=== PATIENT | female | born 1935 | race Caucasian/White ===

== ENCOUNTER → 2020-09-28 | Outpatient (CLI) | payer MEDICARE ==
--- NOTE | 2020-09-28 13:42 | MR ---
MR brain without contrast HISTORY: R 42, headaches dizziness and loss of balance Multiplanar multisequence imaging obtained through the brain, correlation to CT brain 09/05/2020 Scattered and confluent periventricular, subcortical, pericallosal hyperintensities present on invers ion recovery T2-weighted sequences, largest focus in the right frontal lobe on axial image #17 measur es 12 mm. There are greater than 50 lesions. There is no hemorrhage or hydrocephalus. Cortical atroph y is likely age-related. The cerebellopontine angles, corpus callosum, pituitary, cervical medullary junction are unremarkable. Orbits show symmetric appearance. Visualized paranasal sinuses and mastoid air cells are well aerated. There are normal vascular flow voids. IMPRESSION: Age-related atrophy and chronic small vessel ischemic change.
== END | disposition home or self-care (01) ==
LOC: RADMRIMAIN 08:56
PROVIDERS: ATTEND Nurse Practitioner Family
DX: I67.82 Cerebral ischemia (principal); G31.9 Degenerative disease of nervous system, unspecified
CPT/HCPCS: 70551

== ENCOUNTER 2020-09-29 14:35 | Inpatient (IN) | payer MEDICARE ==
[2020-09-29] MEDS ORDERED: SODIUM CHLORIDE 0.9% 1,000 ML IV STA (15:24)
--- NOTE | 2020-09-29 15:51 | ED ---
Weakness HPI - General Chief complaint: Weakness Stated complaint: Sent from Source: patient Mode of arrival: ambulatory Limitations: no limitations - History of Present Illness Initial comments: Tayla is an 85yo F is brought to the ER today by her family for evaluation of weakness and decrease in functional status. Family reports that over the past few weeks the patient has begun progressively weak, she is no longer able to ambulate independently, cannot make up and down her stairs at home, cannot bathe herself. Previously patient was completely independent in driving. Patient reports she has no appetite she feels nauseated she is not eating but is trying to drink water. - Related Data Home Medications Medication Instructions Recorded Confirmed Aspirin EC [Ecotrin Low Dose] 81 mg PO DAILY 09/29/20 09/29/20 Atorvastatin [Lipitor] 40 mg PO HS 09/29/20 09/29/20 Cefuroxime [Ceftin] 250 mg PO Q12H 09/29/20 09/29/20 Cyanocobalamin [Vitamin B-12] 500 mcg PO DAILY 09/29/20 09/29/20 Ferrous Sulfate [Feosol] 325 mg PO DAILY 09/29/20 09/29/20 Insulin NPH Human Isophane 22 - 24 units SQ DAILY 09/29/20 09/29/20 [NovoLIN N] Lisinopril-Hctz 10-12.5 mg 1 tab PO DAILY 09/29/20 09/29/20 [Zestoretic 10-12.5] Meclizine [Antivert] 12.5 mg PO TID 09/29/20 09/29/20 Pantoprazole Sodium [Protonix] 40 mg PO BID 09/29/20 09/29/20 Scopolamine 1.5MG/72Hr Patch 1 patch TRANSDERM Q72H 09/29/20 09/29/20 [Transderm-Scop 1.5MG/72Hr Patch] hydrALAZINE HCL [Apresoline] 50 mg PO TID 09/29/20 09/29/20 Allergies Allergy/AdvReac Type Severity Reaction Status Date / Time tetracycline Allergy Anaphylaxis Verified 09/29/20 16:10 Review of Systems ROS Statement: Those systems with pertinent positive or pertinent negative responses have been documented in the HPI. ROS Other: All systems not noted in ROS Statement are negative. Past Medical History Past Medical History: Cancer, COPD, Diabetes Mellitus, Hypertension Additional Past Medical History / Comment(s): bladder ca History of Any Multi-Drug Resistant Organisms: None Reported Past Surgical History: No Surgical Hx Reported Past Psychological History: No Psychological Hx Reported Smoking Status: Former smoker Past Alcohol Use History: Occasional Past Drug Use History: Marijuana General Exam - General Exam Comments Initial Comments: Physical Exam GENERAL: Patient is well-developed and well-nourished. Dehydrated appearing elderly female HENT: Normocephalic, Atraumatic. EYES: PERRL, EOMI PULMONARY: Unlabored respirations. No audible rales rhonchi or wheezing was noted. CARDIOVASCULAR: RRR ABDOMEN: Soft and nontender with normal bowel sounds. SKIN: Dry : Deferred NEUROLOGIC: Patient is alert and oriented x3. Moving all extremities spontaneously Did not ambulate secondary to weakness No focal weakness MUSCULOSKELETAL: Normal extremities No injury PSYCHIATRIC: Normal psychiatric evaluation. Limitations: no limitations Course Vital Signs 09/29/20 09/29/20 09/29/20 14:36 15:45 16:00 Temperature 98 F Pulse Rate 73 76 Respiratory 18 18 18 Rate Blood Pressure 153/68 146/52 O2 Sat by Pulse 96 96 Oximetry 09/29/20 09/29/20 17:00 17:59 Temperature 98 F Pulse Rate 76 76 Respiratory 18 18 Rate Blood Pressure 169/64 169/64 O2 Sat by Pulse 96 96 Oximetry EKG Findings - EKG Comments: EKG Findings:: EKG was obtained due to complaint of weakness in an elderly patient, EKG obtained at 1506 rate 73 rhythm is sinus there is a normal axis, t here are normal intervals, NM 126, QRS 86, QTC is 414 there are no acute ST elevations or depressions no evidence of ischemia, infarction or arrhythmia. Medical Decision Making - Medical Decision Making Patient was seen and evaluated history is obtained from patient, family members at bedside and patient's primary care physician Patient with a rapid decline in her functional status, generalized weakness loss of appetite she appears dehydrated Patient had outpatient head CT and MRI with no acute findings Labs are obtained patient is dehydrated and hyponatremic, 1 L IV fluids and maintenance fluids were ordered Patient care was discussed with her primary care who is concerned the patient may have a paraneoplastic syndrome and requests computed tomography scan of the chest abdomen and pelvis however due to the patient's dehydration and decreased GFR we will rehydrate her and computed tomography scan can be done at a later time Patient was straight cathed was noted to have a urinary tract infection Rocephin was ordered as well as a culture - Lab Data Result diagrams: 09/29/20 15:41 09/29/20 15:41 Lab Results 09/29/20 09/29/20 09/29/20 Range/Units 15:41 15:41 15:41 WBC 5.9 (3.8-10.6) k/uL RBC 3.33 L (3.80-5.40) m/uL Hgb 9.7 L (11.4-16.0) gm/dL Hct 27.7 L (34.0-46.0) % MCV 83.0 (80.0-100.0) fL MCH 29.1 (25.0-35.0) pg MCHC 35.1 (31.0-37.0) g/dL RDW 12.0 (11.5-15.5) % Plt Count 297 (150-450) k/uL MPV 7.5 Neutrophils % 72 % Lymphocytes % 10 % Monocytes % 9 % Eosinophils % 6 % Basophils % 1 % Neutrophils # 4.3 (1.3-7.7) k/uL Lymphocytes # 0.6 L (1.0-4.8) k/uL Monocytes # 0.5 (0-1.0) k/uL Eosinophils # 0.4 (0-0.7) k/uL Basophils # 0.1 (0-0.2) k/uL Sodium 128 L (137-145) mmol/L Potassium 4.6 (3.5-5.1) mmol/L Chloride 94 L (98-107) mmol/L Carbon Dioxide 24 (22-30) mmol/L Anion Gap 10 mmol/L BUN 34 H (7-17) mg/dL Creatinine 1.32 H (0.52-1.04) mg/dL Est GFR (CKD-EPI)AfAm 43 (>60 ml/min/1.73 sqM) Est GFR (CKD-EPI)NonAf 37 (>60 ml/min/1.73 sqM) Glucose 229 H (74-99) mg/dL Plasma Lactic Acid Darrion 0.7 (0.7-2.0) mmol/L Calcium 9.8 (8.4-10.2) mg/dL Magnesium 1.5 L (1.6-2.3) mg/dL Total Bilirubin 0.1 L (0.2-1.3) mg/dL AST 20 (14-36) U/L ALT 19 (4-34) U/L Alkaline Phosphatase 79 (38-126) U/L Troponin I (0.000-0.034) ng/mL Total Protein 6.1 L (6.3-8.2) g/dL Albumin 3.5 (3.5-5.0) g/dL TSH 2.290 (0.465-4.680) mIU/L 09/29/20 Range/Units 15:41 WBC (3.8-10.6) k/uL RBC (3.80-5.40) m/uL Hgb (11.4-16.0) gm/dL Hct (34.0-46.0) % MCV (80.0-100.0) fL MCH (25.0-35.0) pg MCHC (31.0-37.0) g/dL RDW (11.5-15.5) % Plt Count (150-450) k/uL MPV Neutrophils % % Lymphocytes % % Monocytes % % Eosinophils % % Basophils % % Neutrophils # (1.3-7.7) k/uL Lymphocytes # (1.0-4.8) k/uL Monocytes # (0-1.0) k/uL Eosinophils # (0-0.7) k/uL Basophils # (0-0.2) k/uL Sodium (137-145) mmol/L Potassium (3.5-5.1) mmol/L Chloride (98-107) mmol/L Carbon Dioxide (22-30) mmol/L Anion Gap mmol/L BUN (7-17) mg/dL Creatinine (0.52-1.04) mg/dL Est GFR (CKD-EPI)AfAm (>60 ml/min/1.73 sqM) Est GFR (CKD-EPI)NonAf (>60 ml/min/1.73 sqM) Glucose (74-99) mg/dL Plasma Lactic Acid Darrion (0.7-2.0) mmol/L Calcium (8.4-10.2) mg/dL Magnesium (1.6-2.3) mg/dL Total Bilirubin (0.2-1.3) mg/dL AST (14-36) U/L ALT (4-34) U/L Alkaline Phosphatase (38-126) U/L Troponin I <0.012 (0.000-0.034) ng/mL Total Protein (6.3-8.2) g/dL Albumin (3.5-5.0) g/dL TSH (0.465-4.680) mIU/L Disposition Clinical Impression: Hyponatremia, Weakness, Hyperglycemia, Anemia, Debility Disposition: ADMITTED IP TO THIS [facility] Condition: Serious Is patient prescribed a controlled substance at d/c from ED?: No
[2020-09-29 15:56] LABS: Basophils # (A) 0.1 k/uL (0-0.2); Basophils % (A) 1 %; Eosinophils # (A) 0.4 k/uL (0-0.7); Eosinophils % (A) 6 %; HCT 27.7 % (34.0-46.0); HGB 9.7 gm/dL (11.4-16.0); Lymphocytes # (A) 0.6 k/uL (1.0-4.8); Lymphocytes % (A) 10 %; MCH 29.1 pg (25.0-35.0); MCHC 35.1 g/dL (31.0-37.0); Mean Platelet Volume 7.5; Monocytes # (A) 0.5 k/uL (0-1.0); Monocytes % (A) 9 %; Neutrophils # (A) 4.3 k/uL (1.3-7.7); Neutrophils % (A) 72 %; Platelet Count 297 k/uL (150-450); RBC 3.33 m/uL (3.80-5.40); WBC 5.9 k/uL (3.8-10.6)
[2020-09-29 16:05] LABS: Albumin 3.5 g/dL (3.5-5.0); Calcium 9.8 mg/dL (8.4-10.2); Magnesium 1.5 mg/dL (1.6-2.3); Potassium 4.6 mmol/L (3.5-5.1); Total Bilirubin 0.1 mg/dL (0.2-1.3); Total Protein 6.1 g/dL (6.3-8.2)
--- NOTE | 2020-09-29 16:24 | XR ---
EXAMINATION TYPE: XR chest 2V DATE OF EXAM: 09/29/2020 COMPARISON: NONE HISTORY: Shortness of breath TECHNIQUE: Frontal and lateral views of the chest are obtained. FINDINGS: Scattered senescent parenchymal changes noted. Hyperinflation compatible with COPD. No evidence for infiltrate. No evidence for atelectasis. Heart size is stable. Mediastinal structures are stable and grossly unremarkable. No evidence for hilar prominence. Degenerative changes dorsal spine. IMPRESSION: 1. No evidence for acute pulmonary disease.
[2020-09-29 16:25] LABS: Appearance,Urine Cloudy (Clear); Bacteria,Urine Many /hpf; Bilirubin,Urine Negative (Negative); Blood,Urine Negative (Negative); Color,Urine Light Yellow; Glucose,Urine (UA) Negative (Negative); Ketones,Urine Negative (Negative); Leukocyte Esterase,Urine Large (Negative); Mucus,Urine Rare /hpf; Nitrite,Urine Negative (Negative); Protein,Urine Negative (Negative); RBC,Urine 1 /hpf (0-5); Squamous Epithelial Cell,Urine <1 /hpf (0-4); Urobilinogen,Urine <2.0 mg/dL (<2.0); WBC,Urine >182 /hpf (0-5)
[2020-09-29] MEDS ORDERED: NALOXONE 0.4 MG/ML 1 ML VIAL IV PRN (16:30)
[2020-09-29 20:28] LABS: Glucose,Whole Blood 225 mg/dL (75-99)
[2020-09-29] MEDS: INSULIN ASPART (NovoLOG) 100 UNIT/ML VIAL SQ SCH (20:45)
[2020-09-29] MEDS: SODIUM CHLORIDE 0.9% 1,000 ML IV SCH (20:47)
[2020-09-29] MEDS ORDERED: SCOPOLAMINE 1.5MG/72HR PATCH TRANSDERM SCH (21:00)
[2020-09-29] MEDS: hydrALAZINE HCL 50 MG TAB PO SCH (21:35)
[2020-09-29] MEDS: MECLIZINE 12.5 MG TAB PO SCH (21:36)
[2020-09-30 02:01] LABS: Glucose,Whole Blood 131 mg/dL (75-99)
[2020-09-30 06:05] LABS: Glucose,Whole Blood 137 mg/dL (75-99)
[2020-09-30] MEDS: INSULIN ASPART (NovoLOG) 100 UNIT/ML VIAL SQ SCH ×4 (06:31→21:30)
[2020-09-30 07:22] LABS: HCT 24.6 % (34.0-46.0); HGB 8.8 gm/dL (11.4-16.0); MCH 29.6 pg (25.0-35.0); MCHC 35.7 g/dL (31.0-37.0); MCV 82.9 fL (80.0-100.0); Platelet Count 274 k/uL (150-450); RBC 2.97 m/uL (3.80-5.40); RDW 12.2 % (11.5-15.5); WBC 5.5 k/uL (3.8-10.6)
[2020-09-30] MEDS ORDERED: PANTOPRAZOLE 40 MG TABLET PO SCH (07:30)
[2020-09-30 07:45] LABS: Calcium 9.1 mg/dL (8.4-10.2); Magnesium 1.3 mg/dL (1.6-2.3); Potassium 4.1 mmol/L (3.5-5.1); Total Bilirubin 0.1 mg/dL (0.2-1.3); Total Protein 5.5 g/dL (6.3-8.2)
--- NOTE | 2020-09-30 08:20 | P.HPIM ---
History of Present Illness H&P Date: 09/29/20 Chief Complaint: Change mental status, debility, hyponatremia, electrolyte i mbalance, acute HISTORY OF PRESENT ILLNESS 85-year-old female in my office patient who has multiple medical problem known to have history of bladder cancer, atherosclerotic heart disease, history of diabetes, history of CVA, recurrent UTI, chronic smoking and peripheral vascular disease who was hospitalized recently at [facility] for TIA and found to have recurrent UTI with encephalopathy. Patient was treated in full seen back in the office continue to have significant symptom with abnormal balance gait along with severe vestibulopathy and dizziness. Found to have another UTI which was treated as well and patient was referred for outpatient MRI showed significant small vessel disease with multiple spot of abdomen radiation consistent with most likely TIA and small vessel disease no sign of large CVA was found. And no sign of any questionable of metastasis at the time. Patient has been declining very aggressively not been able to ambulate, walk, take care of herself, not been able to walk to the bathroom shower or fix her meals. 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 Chest x-ray came back negative, with her kidney function decided to delay going for CAT scan of the abdomen pelvis and the chest still patient is well-hydrated and patient will be admitted for recurrent UTI with possible neoplasm in the bladder also workup for neoplasm in the lung or in the soft tissue in the abdominal and pelvis area to be done still watch for any gastrointestinal bleed. Her blood sugar has been significantly elevated despite using her insulin which will be adjusted at this point. REVIEW OF SYSTEMS Constitutional: No fever, no chills, no night sweats. No weight change. No weakness, fatigue or lethargy. No daytime sleepiness. EENT: No headache. No blurred vision or double vision, no loss of vision. No loss of Hearing, no ringing in the ears, no dizziness. No nasal drainage or congestion. No epistaxis. No sore throat. Lungs: Shortness of breath with minimum exertion. Cardiovascular: PND orthopnea palpitations with slight fluctuation of the blood pressure no typical chest pain. Abdominal: Abdominal pain and slightly decreased appetite No nausea, vomiting. No diarrhea. No constipation. No bloody or tarry stools.. Genitourinary: Recurrent UTI 3 times despite treatment. Musculoskeletal: Positive myalgia and arthralgia without any rash this time no soft tissue infection Integumentary: No wounds, no lesions. No rash or pruritus. No unusual bruising. No change in hair or nails. Neurologic: Change mental status with abnormal balance and gait significant dizziness question left vestibulopathy with worsening memory Psychiatric: No depression. No anxiety. No mood swings. Endocrine: No abnormal blood sugars. No weight change. No excessive sweating or thirst. No cold intolerance. SOCIAL HISTORY Patient quit smoking 3 years ago used to be heavy smoker over one and half pack daily for 40 years, no alcohol abuse, she is and lives home alone and has been independent able to take care of herself drive herself make her own appointment fix her own food and go shopping on her own until the last 3 weeks and family start managing to take care of her and still worry about her fall and safety. FAMILY HISTORY 3 children with history of hypertension. Siblings with history of dementia, CAD and cancer. Her father from AAA rupture PHYSICAL EXAMINATION Gen: This is elderly does not look in any respiratory distress slightly confused HEENT: Head is atraumatic, normocephalic. Pupils equal, round. Sclerae is a nicteric. NECK: Supple. No JVD. No lymphadenopathy. No thyromegaly. Can't feel any mass or ulceration at this time LUNGS: Decreased breath some bilaterally specially in the left side worsening rhonchi and slight expiratory wheezes. HEART: Regular rhythm and rate, S1, S2, positive PVCs with systolic murmur in the apex ABDOMEN: Soft. Bowel sounds are present. No masses. Slight discomfort in the lower abdominal region area. EXTREMITIES: Significant discoloration decreased pulse in the peripheral area specially lower extremity NEUROLOGICAL: Patient is awake, alert with slight confusion. Cranial nerves 2 through 12 are grossly intact. Positive generalized weakness significantly abnormal balance and gait. ASSESSMENT AND PLAN 1. Change mental status: Most likely encephalopathy affected by UTI, TIA, hyponatremia, anemia, acute kidney injury and possible paraneoplastic syndrome.. 2. TIA small vessel disease: MRI was done, carotid and CT of the neck to be reviewed patient will be seen urology at this point she can benefit from remain on antiplatelet agent beside aspirin at this point. 3. Hyponatremia: With mild SIADH not a clear etiology could be sign of malignancy and paraneoplastic syndrome, fluid restriction and watch symptoms repeat CMP twice a day and consult nephrology. 4. Anemia and possible GI bleed: Stool for Hemoccult will be done continue pantoprazole and watch for any active aggressive completed this time patient currently is not on any anticoagulation but will continue GI prophylaxis.. 5. Recurrent UTI despite treatment and management 3 times so far, patient survival of bladder cancer and this is probably sign of recurrent cancer she will require cystoscopy this time urine will be cultured again continue aggressive treatment for total of 10 days to 2 weeks.. 6. Acute kidney injury: With stage II chronic kidney disease: Been diabetic this is most likely diabetic nephropathy with worsening symptom with UTI and hypoperfusion, gentle hydration repeat CMP in the next 24 hours.. 7. Atherosclerotic heart disease: With no sign of chest pain or angina at this time patient testing were done last time close to a year ago echocardiogram was done I believe last few month with try to get copy of the results from the [facility]. 8. Type 2 diabetes on insulin: Not well controlled last A1c has been about 8.5, patient has been on short acting NovoLog along with Humulin pen she had refuse Lantus and NovoLog before meals meals before patient had few episodes of hypoglycemia on oral agent and could not afford this SGLP 2 product. His kidney function will allow we will add smaller dose of metformin or even if possible smaller dose of Prandin at this point. When of the best option for patients probably to do Trulicity, and switch her Novolin N to Toujeo or Lantus and probably stay on sliding scales before meals. 9. Memory loss: Most likely from small vessel disease if no improvement trial of smaller dose of Donepazil for the next few weeks. 10. Hyperlipidemia: Remain on atorvastatin 40 mg daily. 11 hypertension: Continue lisinopril HCT 10/12.5 mg daily patient's post to stay on smaller dose of metoprolol she quit herself because of mild lightheadedness. Also still on hydralazine 50 mg 3 times a day. 12 possible paraNeoplastic syndrome, especially with patient states the symptoms with chronic smoking for the weight loss her TIA hypercoagulopathy and [place] patient will go for CT of the chest abdomen and pelvis to rule out any existing soft tissue mass with metastasis. 13 GI prophylaxis: Remain on pantoprazole. 14 DVT prophylaxis: Early mobilization and knee-high FARHAN hose no subcutaneous heparin at this point specially with anemia and possible GI bleed. Patient will be admitted to the hospital for a minimum of 2 night stay. Past Medical History Past Medical History: Cancer, COPD, Diabetes Mellitus, Hypertension Additional Past Medical History / Comment(s): bladder ca History of Any Multi-Drug Resistant Organisms: None Reported Past Surgical History: No Surgical Hx Reported Additional Past Surgical History / Comment(s): NOSE SURGERY, RIGHT KIDNEY URETH ER SURGERY, Past Anesthesia/Blood Transfusion Reactions: No Reported Reaction Past Psychological History: No Psychological Hx Reported Smoking Status: Former smoker Past Alcohol Use History: Occasional Past Drug Use History: Marijuana - Past Family History Father Family Medical History: Cancer Additional Family Medical History / Comment(s): AAA Mother Family Medical History: CVA/TIA Medications and Allergies Home Medications Medication Instructions Recorded Confirmed Type Aspirin EC [Ecotrin Low Dose] 81 mg PO DAILY 09/29/20 09/29/20 History Atorvastatin [Lipitor] 40 mg PO HS 09/29/20 09/29/20 History Cefuroxime [Ceftin] 250 mg PO Q12H 09/29/20 09/29/20 History Cyanocobalamin [Vitamin B-12] 500 mcg PO DAILY 09/29/20 09/29/20 History Ferrous Sulfate [Feosol] 325 mg PO DAILY 09/29/20 09/29/20 History Insulin NPH Human Isophane 22 - 24 units SQ DAILY 09/29/20 09/29/20 History [NovoLIN N] Lisinopril-Hctz 10-12.5 mg 1 tab PO DAILY 09/29/20 09/29/20 History [Zestoretic 10-12.5] Meclizine [Antivert] 12.5 mg PO TID 09/29/20 09/29/20 History Pantoprazole Sodium [Protonix] 40 mg PO BID 09/29/20 09/29/20 History Scopolamine 1.5MG/72Hr Patch 1 patch TRANSDERM Q72H 09/29/20 09/29/20 History [Transderm-Scop 1.5MG/72Hr Patch] hydrALAZINE HCL [Apresoline] 50 mg PO TID 09/29/20 09/29/20 History Allergies Allergy/AdvReac Type Severity Reaction Status Date / Time tetracycline Allergy Anaphylaxis Verified 09/29/20 16:10 Physical Exam Vitals: Vital Signs Temp Pulse Pulse Resp BP BP Pulse Ox 09/29/20 20:00 97.8 F 75 18 158/63 98 09/29/20 17:59 98 F 76 18 169/64 96 09/29/20 17:20 74 16 150/63 97 09/29/20 17:00 76 18 169/64 96 09/29/20 16:00 76 18 146/52 96 09/29/20 15:45 18 09/29/20 14:36 98 F 73 18 153/68 96 Intake and Output 09/29/20 09/29/20 09/29/20 06:59 14:59 22:59 Other: Voiding Method Toilet Weight 74.389 kg 74.389 kg Results CBC & Chem 7: 09/30/20 07:00 09/30/20 07:00 Labs: Abnormal Lab Results - Last 24 Hours (Table) 09/29/20 09/29/20 09/29/20 Range/Units 15:41 15:41 20:26 RBC 3.33 L (3.80-5.40) m/uL Hgb 9.7 L (11.4-16.0) gm/dL Hct 27.7 L (34.0-46.0) % Lymphocytes # 0.6 L (1.0-4.8) k/uL Sodium 128 L (137-145) mmol/L Chloride 94 L (98-107) mmol/L BUN 34 H (7-17) mg/dL Creatinine 1.32 H (0.52-1.04) mg/dL Glucose 229 H (74-99) mg/dL POC Glucose (mg/dL) 225 H (75-99) mg/dL Magnesium 1.5 L (1.6-2.3) mg/dL Total Bilirubin 0.1 L (0.2-1.3) mg/dL Total Protein 6.1 L (6.3-8.2) g/dL Urine Appearance (Clear) Ur Leukocyte Esterase (Negative) Urine WBC (0-5) /hpf Urine WBC Clumps (None) /hpf Urine Bacteria (None) /hpf Urine Mucus (None) /hpf 09/29/20 Range/Units Unknown RBC (3.80-5.40) m/uL Hgb (11.4-16.0) gm/dL Hct (34.0-46.0) % Lymphocytes # (1.0-4.8) k/uL Sodium (137-145) mmol/L Chloride (98-107) mmol/L BUN (7-17) mg/dL Creatinine (0.52-1.04) mg/dL Glucose (74-99) mg/dL POC Glucose (mg/dL) (75-99) mg/dL Magnesium (1.6-2.3) mg/dL Total Bilirubin (0.2-1.3) mg/dL Total Protein (6.3-8.2) g/dL Urine Appearance Cloudy H (Clear) Ur Leukocyte Esterase Large H (Negative) Urine WBC >182 H (0-5) /hpf Urine WBC Clumps Many H (None) /hpf Urine Bacteria Many H (None) /hpf Urine Mucus Rare H (None) /hpf Thrombosis Risk Factor Assmnt - Choose All That Apply Any of the Below Risk Factors Present?: No Other Risk Factors: Yes Each Risk Factor Represents 3 Points: Age 75 years or older Other congenital or acquired thrombophilia - If yes, enter type in comment: No Thrombosis Risk Factor Assessment Total Risk Factor Score: 3 Thrombosis Risk Factor Assessment Level: Moderate Risk
[2020-09-30] MEDS ORDERED: LISINOPRIL-HCTZ 10-12.5 MG 1 EACH TAB PO SCH (09:00)
[2020-09-30] MEDS: INSULIN NPH 300 UNIT/3 ML VIAL SQ SCH (09:00)
[2020-09-30] MEDS: hydrALAZINE HCL 50 MG TAB PO SCH ×3 (09:02→21:30)
[2020-09-30] MEDS: PANTOPRAZOLE 40 MG TABLET PO SCH ×2 (09:02→21:30)
[2020-09-30] MEDS: ASPIRIN 81 MG PO SCH (09:02)
[2020-09-30] MEDS: MECLIZINE 12.5 MG TAB PO SCH ×3 (09:02→21:30)
[2020-09-30] MEDS: IOPAMIDOL CONTRAST (ORAL USE) VIAL PO PRN ×2 (09:02→10:12)
[2020-09-30] MEDS: CYANOCOBALAMIN 500 MCG TAB PO SCH (09:02)
[2020-09-30] MEDS: FERROUS SULFATE 325 MG TAB PO SCH (09:02)
[2020-09-30 09:23] LABS: Reticulocyte % 1.8 % (0.5-2.0)
[2020-09-30] MEDS: SODIUM CHLORIDE 0.9% 1,000 ML IV SCH (10:12)
[2020-09-30] MEDS ORDERED: Magnesium Replacement Protocol 1 EACH MISC MISCELLANE PRN (10:35)
--- NOTE | 2020-09-30 11:12 | P.NPCON ---
History of Present Illness - Reason for Consult hyponatremia - History of Present Illness Reason for consultation: Hyponatremia History of present illness: Patient is a 85-year-old female seen in renal consultation for hyponatremia. Sodium level was 128 on admission and is up to 132 today. She is maintained on normal saline at 75 mL an hour. Creatinine was 1.3-1 admission and is 1.01 today. Patient presented to the hospital with generalized weakness. Patient states she's been drinking quite a bit of water but her oral intake has decreased the last few days. No recent diarrhea or vomiting. She denies use of nonsteroidals. Denies any personal history of malignancy. From the chart it appears that the patient was having a difficult time ambulating independently and was having a difficult time with activity of daily livings. Therefore the family advised her to come to the hospital. I do note that she was taking lisinopril and hydrochlorothiazide outpatient. She does have long-standing history of diabetes. Blood pressure is stable. Vital signs are stable. General: The patient appeared well nourished and normally developed. HEENT: Head exam is unremarkable. Neck is without jugular venous distension. LUNGS: Breath sounds decreased. HEART: Rate and Rhythm are regular. ABDOMEN: Soft, no distention. EXTREMITITES: No edema. Past Medical History Past Medical History: Cancer, COPD, Diabetes Mellitus, Hypertension Additional Past Medical History / Comment(s): bladder ca History of Any Multi-Drug Resistant Organisms: None Reported Past Surgical History: No Surgical Hx Reported Additional Past Surgical History / Comment(s): NOSE SURGERY, RIGHT KIDNEY URETHER SURGERY, Past Anesthesia/Blood Transfusion Reactions: No Reported Reaction Past Psychological History: No Psychological Hx Reported Smoking Status: Former smoker Past Alcohol Use History: Occasional Past Drug Use History: Marijuana - Past Family History Father Family Medical History: Cancer Additional Family Medical History / Comment(s): AAA Mother Family Medical History: CVA/TIA Medications and Allergies Home Medications Medication Instructions Recorded Confirmed Type Aspirin EC [Ecotrin Low Dose] 81 mg PO DAILY 09/29/20 09/29/20 History Atorvastatin [Lipitor] 40 mg PO HS 09/29/20 09/29/20 History Cefuroxime [Ceftin] 250 mg PO Q12H 09/29/20 09/29/20 History Cyanocobalamin [Vitamin B-12] 500 mcg PO DAILY 09/29/20 09/29/20 History Ferrous Sulfate [Feosol] 325 mg PO DAILY 09/29/20 09/29/20 History Insulin NPH Human Isophane 22 - 24 units SQ DAILY 09/29/20 09/29/20 History [NovoLIN N] Lisinopril-Hctz 10-12.5 mg 1 tab PO DAILY 09/29/20 09/29/20 History [Zestoretic 10-12.5] Meclizine [Antivert] 12.5 mg PO TID 09/29/20 09/29/20 History Pantoprazole Sodium [Protonix] 40 mg PO BID 09/29/20 09/29/20 History Scopolamine 1.5MG/72Hr Patch 1 patch TRANSDERM Q72H 09/29/20 09/29/20 History [Transderm-Scop 1.5MG/72Hr Patch] hydrALAZINE HCL [Apresoline] 50 mg PO TID 09/29/20 09/29/20 History Allergies Allergy/AdvReac Type Severity Reaction Status Date / Time tetracycline Allergy Anaphylaxis Verified 09/29/20 16:10 Physical Exam Vitals: Vital Signs Temp Pulse Pulse Resp BP BP Pulse Ox 09/30/20 03:51 98.0 F 77 18 140/63 94 L 09/30/20 01:51 72 18 09/29/20 23:10 97.9 F 72 18 148/66 98 09/29/20 20:00 97.8 F 75 18 158/63 98 09/29/20 17:59 98 F 76 18 169/64 96 09/29/20 17:20 74 16 150/63 97 09/29/20 17:00 76 18 169/64 96 09/29/20 16:00 76 18 146/52 96 09/29/20 15:45 18 09/29/20 14:36 98 F 73 18 153/68 96 Intake and Output 09/29/20 09/30/20 09/30/20 22:59 06:59 14:59 Intake Total 125 1260 240 Balance 125 1260 240 Intake: Intake, IV Titration 125 600 Amount Sodium Chloride 0.9% 1, 75 600 000 ml @ 75 mls/hr IV . [id number] [facility] Rx#:[id number] cefTRIAXone 1 gm In 50 Sodium Chloride 0.9% 50 ml @ 100 mls/hr IVPB Q24HR [facility] Rx#:[id number] Oral 660 240 Other: Voiding Method Toilet Toilet # Voids 1 1 1 Weight 74.389 kg 73.8 kg Results - Lab Results Most recent lab results Calcium 9.1 mg/dL (8.4-10.2) 09/30/20 07:00 Magnesium 1.3 mg/dL (1.6-2.3) L 09/30/20 07:00 09/30/20 07:00 09/30/20 07:00 Assessment and Plan Plan: Assessment: 1. Acute kidney injury mostly prerenal from poor intake and lisinopril/Hydrochlorothiazide. Improved with IV hydration. Creatinine 1.01 today. 2. Hypovolemic hyponatremia for poor intake and further worsened with the use of thiazide diuretic. Improving. 3. Benign hypertension. Stable. 4. Diabetes mellitus. 5. Hypomagnesemia from poor intake and as a diuretic. Plan: Maintain normal saline. Encourage oral intake, particularly protein. Hold lisinopril for now. Avoid thiazide diuretics in the future. Replace magnesium. Thank you for the consultation. I will continue to follow the patient with you during her hospital stay.
--- NOTE | 2020-09-30 11:40 | P.PN ---
Subjective Progress Note Date: 09/30/20 HISTORY OF PRESENT ILLNESS 85-year-old female in my office patient who has multiple medical problem known to have history of bladder cancer, atherosclerotic heart disease, history of diabetes, history of CVA, recurrent UTI, chronic smoking and peripheral vascular disease who was hospitalized recently at [facility] [place] for TIA and found to have recurrent UTI with encephalopathy. Patient was treated in full seen back in the office continue to have significant symptom with abnormal balance gait along with severe vestibulopathy and dizziness. Found to have another UTI which was treated as well and patient was referred for outpatient MRI showed significant small vessel disease with multiple spot of abdomen radiation consistent with most likely TIA and small vessel disease no sign of large CVA was found. And no sign of any questionable of metastasis at the time. Patient has been declining very aggressively not been able to ambulate, walk, take care of herself, not been able to walk to the bathroom shower or fix her meals. 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 Chest x-ray came back negative, with her kidney function decided to delay going for CAT scan of the abdomen pelvis and the chest still patient is well-hydrated and patient will be admitted for recurrent UTI with possible neoplasm in the bladder also workup for neoplasm in the lung or in the soft tissue in the abdominal and pelvis area to be done still watch for any gastrointestinal bleed. Her blood sugar has been significantly elevated despite using her insulin which will be adjusted at this point. 09/30: Patient states that she feels about the same from yesterday. She was noted have a drop in her hemoglobin and consult with GI was added, stool for occult study. We've also added a consult for urology as patient has history of bladder cancer and has had multiple frequent urinary tract infections recently. She was seen by Dr. Sinclair in the past who has retired. There is also consult in place for neurology for occipital neuralgia possible trigeminal neuralgia. Nephrology to follow for hyponatremia and acute kidney injury. Patient has been afebrile, heart rate 77, blood pressure 140/63, pulse ox 94% on room air. Repeat blood work reveals WBC 5.5, hemoglobin 8.8, platelet count 274. Sodium 132, potassium 4.1, chloride 102, CO2 23, BUN 24 creatinine 1.01. Blood sugars are running between 132 and 225. Magnesium 1.3, total bilirubin 0.1, AST 18, ALT 16, alkaline phosphatase 61. Urine culture is in progress. REVIEW OF SYSTEMS Constitutional: No fever, no chills, no night sweats. No weight change. No weakness, fatigue or lethargy. No daytime sleepiness. EENT: No headache. No blurred vision or double vision, no loss of vision. No loss of Hearing, no ringing in the ears, no dizziness. No nasal drainage or congestion. No epistaxis. No sore throat. Lungs: Shortness of breath with minimum exertion. Cardiovascular: PND orthopnea palpitations with slight fluctuation of the blood pressure no typical chest pain. Abdominal: Abdominal pain and slightly decreased appetite No nausea, vomiting. No diarrhea. No constipation. No bloody or tarry stools. Genitourinary: Recurrent UTI 3 times despite treatment. No urinary retention. Musculoskeletal: Positive myalgia and arthralgia without any rash this time no soft tissue infection Integumentary: No wounds, no lesions. No rash or pruritus. No unusual bruising. No change in hair or nails. Neurologic: Change mental status with abnormal balance and gait significant dizziness question left vestibulopathy with worsening memory Psychiatric: No depression. No anxiety. No mood swings. Endocrine: No abnormal blood sugars. No weight change. PHYSICAL EXAMINATION Gen: This is an 85-year-old female. She is resting bed appears comfortable and in no acute distress. HEENT: Head is atraumatic, normocephalic. Pupils equal, round. Sclerae is anicteric. NECK: Supple. No JVD. No lymphadenopathy. No thyromegaly. Can't feel any mass or ulceration at this time LUNGS: Decreased breath some bilaterally specially in the left side worsening rhonchi and slight expiratory wheezes. HEART: Regular rhythm and rate, S1, S2, positive PVCs with systolic murmur in the apex ABDOMEN: Soft. Bowel sounds are present. No masses. Slight discomfort in the lower abdominal region area. EXTREMITIES: Significant discoloration decreased pulse in the peripheral area sp ecially lower extremity NEUROLOGICAL: Patient is awake, alert and oriented 3. Cranial nerves 2 through 12 are grossly intact. Positive generalized weakness significantly abnormal balance and gait. ASSESSMENT AND PLAN 1. Metabolic encephalopathy affected by UTI, TIA, hyponatremia, anemia, acute kidney injury and possible paraneoplastic syndrome. 2. TIA small vessel disease: MRI was done, carotid and CT of the neck to be reviewed patient will be seen by neurology at this point she can benefit from remain on antiplatelet agent beside aspirin at this point. 3. Hyponatremia, improving: With mild SIADH not a clear etiology could be sign of malignancy and paraneoplastic syndrome, fluid restriction and watch symptoms repeat CMP twice a day and consult nephrology. 4. Anemia and possible GI bleed: Stool for Hemoccult will be done continue pantoprazole and watch for any active aggressive completed this time patient currently is not on any anticoagulation but will continue GI prophylaxis. 5. Recurrent UTI despite treatment and management 3 times so far, patient survival of bladder cancer and this is probably sign of recurrent cancer she will require cystoscopy this time urine will be cultured again continue aggressive treatment for total of 10 days to 2 weeks. 6. Acute kidney injury: With stage II chronic kidney disease: Been diabetic this is most likely diabetic nephropathy with worsening symptom with UTI and hypoperfusion, gentle hydration repeat CMP in the next 24 hours.. 7. Atherosclerotic heart disease: With no sign of chest pain or angina at this time patient testing were done last time close to a year ago echocardiogram was done I believe last few month with try to get copy of the results from the [facility]. 8. Type 2 diabetes on insulin: Not well controlled last A1c has been about 8.5, patient has been on short acting NovoLog along with Humulin pen she had refuse Lantus and NovoLog before meals meals before patient had few episodes of hypoglycemia on oral agent and could not afford this SGLP 2 product. His kidney function will allow we will add smaller dose of metformin or even if possible smaller dose of Prandin at this point. When of the best option for patients probably to do Trulicity, and switch her Novolin N to Toujeo or Lantus and probably stay on sliding scales before meals. 9. Memory loss: Most likely from small vessel disease if no improvement trial of smaller dose of Donepazil for the next few weeks. 10. Hyperlipidemia: Remain on atorvastatin 40 mg daily. 11 hypertension: Continue lisinopril HCT 10/12.5 mg daily patient's post to stay on smaller dose of metoprolol she quit herself because of mild lightheadedness. Also still on hydralazine 50 mg 3 times a day. 12 possible paraNeoplastic syndrome, especially with patient states the symptoms with chronic smoking for the weight loss her TIA hypercoagulopathy and [place] patient will go for CT of the chest abdomen and pelvis to rule out any existing soft tissue mass with metastasis. 13 GI prophylaxis: Remain on pantoprazole. 14 DVT prophylaxis: Early mobilization and knee-high FARHAN hose no subcutaneous heparin at this point specially with anemia and possible GI bleed. CODE STATUS: No code DISCHARGE PLAN Most likely return home, possible subacute rehab. Consult in place with PT, OT and dialysis social worker. Impression and plan of care have been directed as dictated by the signing physician. Cori Austin nurse practitioner acting as scribe for signing physician. Objective - Vital Signs Vital signs: Vital Signs Temp 98.0 F 09/30/20 03:51 Pulse 77 09/30/20 03:51 Resp 18 09/30/20 03:51 BP 140/63 09/30/20 03:51 Pulse Ox 94 L 09/30/20 03:51 Intake & Output 09/29/20 09/30/20 09/30/20 18:59 06:59 18:59 Intake Total 1385 Balance 1385 Weight 74.389 kg 73.8 kg Intake: Intake, IV Titration 725 Amount Sodium Chloride 0.9% 1, 675 000 ml @ 75 mls/hr IV . [id number] [facility] Rx#:[id number] cefTRIAXone 1 gm In 50 Sodium Chloride 0.9% 50 ml @ 100 mls/hr IVPB Q24HR [facility] Rx#:[id number] Oral 660 Other: Voiding Method Toilet # Voids 1 1 - Labs CBC & Chem 7: 09/30/20 07:00 09/30/20 07:00 Labs: Abnormal Lab Results - Last 24 Hours (Table) 09/29/20 09/29/20 09/29/20 Range/Units 15:41 15:41 20:26 RBC 3.33 L (3.80-5.40) m/uL Hgb 9.7 L (11.4-16.0) gm/dL Hct 27.7 L (34.0-46.0) % Lymphocytes # 0.6 L (1.0-4.8) k/uL Sodium 128 L (137-145) mmol/L Chloride 94 L (98-107) mmol/L BUN 34 H (7-17) mg/dL Creatinine 1.32 H (0.52-1.04) mg/dL Glucose 229 H (74-99) mg/dL POC Glucose (mg/dL) 225 H (75-99) mg/dL Magnesium 1.5 L (1.6-2.3) mg/dL Total Bilirubin 0.1 L (0.2-1.3) mg/dL Total Protein 6.1 L (6.3-8.2) g/dL Albumin (3.5-5.0) g/dL Urine Appearance (Clear) Ur Leukocyte Esterase (Negative) Urine WBC (0-5) /hpf Urine WBC Clumps (None) /hpf Urine Bacteria (None) /hpf Urine Mucus (None) /hpf 09/29/20 09/30/20 09/30/20 Range/Units Unknown 02:00 06:04 RBC (3.80-5.40) m/uL Hgb (11.4-16.0) gm/dL Hct (34.0-46.0) % Lymphocytes # (1.0-4.8) k/uL Sodium (137-145) mmol/L Chloride (98-107) mmol/L BUN (7-17) mg/dL Creatinine (0.52-1.04) mg/dL Glucose (74-99) mg/dL POC Glucose (mg/dL) 131 H 137 H (75-99) mg/dL Magnesium (1.6-2.3) mg/dL Total Bilirubin (0.2-1.3) mg/dL Total Protein (6.3-8.2) g/dL Albumin (3.5-5.0) g/dL Urine Appearance Cloudy H (Clear) Ur Leukocyte Esterase Large H (Negative) Urine WBC >182 H (0-5) /hpf Urine WBC Clumps Many H (None) /hpf Urine Bacteria Many H (None) /hpf Urine Mucus Rare H (None) /hpf 09/30/20 09/30/20 Range/Units 07:00 07:00 RBC 2.97 L (3.80-5.40) m/uL Hgb 8.8 L (11.4-16.0) gm/dL Hct 24.6 L (34.0-46.0) % Lymphocytes # (1.0-4.8) k/uL Sodium 132 L (137-145) mmol/L Chloride (98-107) mmol/L BUN 24 H (7-17) mg/dL Creatinine (0.52-1.04) mg/dL Glucose 132 H (74-99) mg/dL POC Glucose (mg/dL) (75-99) mg/dL Magnesium 1.3 L (1.6-2.3) mg/dL Total Bilirubin 0.1 L (0.2-1.3) mg/dL Total Protein 5.5 L (6.3-8.2) g/dL Albumin 3.0 L (3.5-5.0) g/dL Urine Appearance (Clear) Ur Leukocyte Esterase (Negative) Urine WBC (0-5) /hpf Urine WBC Clumps (None) /hpf Urine Bacteria (None) /hpf Urine Mucus (None) /hpf Microbiology - Last 24 Hours (Table) 09/29/20 Unknown Urine Culture - Preliminary Urine,Voided
[2020-09-30 11:56] LABS: Glucose,Whole Blood 364 mg/dL (75-99)
--- NOTE | 2020-09-30 12:17 | P.CNNES ---
History of Present Illness Consult date: 09/30/20 Requesting physician: Johnny Flynn Reason for Consult: cva and encephalopathy, possible seizure History of Present Illness: This is an 85-year-old woman with history of TIA, diabetes mellitus, bladder cancer, coronary artery disease, recurrent urinary tract infection, peripheral vascular disease, ex tobacco use who presented emergency department on 09/29/2020 who has been having generalized weakness for the last 3 weeks that is progressive. History is obtained from patient and medical record. This patient is known to Dr. Flynn and she follows-up in his office. According to the patient since September 18 she is having difficulty walking and feels her balance is off, feels dizzy especially when the lying on the right side, feels lightheaded upon standing up. She stated that when she is lying down she denies any ligh theadedness or dizziness affect but when she is a standing up or moving around she feels lightheaded that. She said that in the past it she is to use a cane for long distance now even with short distance she has to use a cane. She denies of any focal weakness, denies of any new visual disturbance. Denies of any difficulty swallowing or getting her words out. Denies of any numbness. She said that she had a transient ischemic attack about 2 years ago in which she had slurring of the speech and left arm weakness. Per Dr. Flynn's note it seems for the last 3 weeks patient has been declining ve ry aggressively not being able to ambulate, walk to care herself is not able to fix her meals. She had as abnormal balance with dizziness. The patient has no apetite, not eating felt nauseated but attempting to influence. She had outpatient MRI of the brain without contrast on 09/28/2020 is reported as age-related atrophy and chronic small vessel ischemic change. I personally reviewed the MRI of the brain and the has numerous small foci in the bilateral subcortical and I felt even in the cortical region had few small foci on the the temporal lesion bilaterally and that was seen on the FLAIR as well as over the right antelmo there is a hyperintensity lesion there Patient on medication is aspirin 81, Lipitor 40 mg, meclizine 12.5 mg 1 tablet 3 times a day, scopolamine, orthotics, lisinopril, insulin, vitamin B12, hydralazine. Regarding the patient history of bladder cancer she said that she was diagnosed 4 years ago but she did not get any chemo therapy or radiation and followed up with a specialist but could not remember exact details but was told it resolved but she had to continue to follow-up but has not done so. Other workup in the hospital consisted of: Initial vital signs: Blood pressure of 153/68, heart rate of 73, respiratory of 18, temperature of 98 Fahrenheit oral and the pulse ox of 96% room air. White blood cell at presentation is 5.9 which is normal. Patient's hemoglobin is 9.7 and repeat is 8.8 which is low. Not sure which side the patient to hemoglobin baseline now. On presentation the sodium is 128 which is low. The BUN is 34 and the creatinine is 1.32 which is elevated that. The glucose on presentation was 229 which is elevated that. AST is 20 and ALT is 19 which is normal. TSH is 2.290 which is normal. Calcium is 9.8 which is normal. Magnesium is 1.5 which is low. Urinalysis is positive for urinary tract infection. The Luke's esters was large, urine white blood cell is more than 182, urine white blood cell clumps is many, urine bacteria is many. Review of Systems Review of system: The 12 point system was reviewed and apparent positive and negative per HPI. Past Medical History Past Medical History: Cancer, COPD, Diabetes Mellitus, Hypertension Additional Past Medical History / Comment(s): bladder ca History of Any Multi-Drug Resistant Organisms: None Reported Past Surgical History: No Surgical Hx Reported Additional Past Surgical History / Comment(s): NOSE SURGERY, RIGHT KIDNEY URETHER SURGERY, Past Anesthesia/Blood Transfusion Reactions: No Reported Reaction Past Psychological History: No Psychological Hx Reported Smoking Status: Former smoker Past Alcohol Use History: Occasional Past Drug Use History: Marijuana - Past Family History Father Family Medical History: Cancer Additional Family Medical History / Comment(s): AAA Mother Family Medical History: CVA/TIA Medications and Allergies Home Medications Medication Instructions Recorded Confirmed Type Aspirin EC [Ecotrin Low Dose] 81 mg PO DAILY 09/29/20 09/29/20 History Atorvastatin [Lipitor] 40 mg PO HS 09/29/20 09/29/20 History Cefuroxime [Ceftin] 250 mg PO Q12H 09/29/20 09/29/20 History Cyanocobalamin [Vitamin B-12] 500 mcg PO DAILY 09/29/20 09/29/20 History Ferrous Sulfate [Feosol] 325 mg PO DAILY 09/29/20 09/29/20 History Insulin NPH Human Isophane 22 - 24 units SQ DAILY 09/29/20 09/29/20 History [NovoLIN N] Lisinopril-Hctz 10-12.5 mg 1 tab PO DAILY 09/29/20 09/29/20 History [Zestoretic 10-12.5] Meclizine [Antivert] 12.5 mg PO TID 09/29/20 09/29/20 History Pantoprazole Sodium [Protonix] 40 mg PO BID 09/29/20 09/29/20 History Scopolamine 1.5MG/72Hr Patch 1 patch TRANSDERM Q72H 09/29/20 09/29/20 History [Transderm-Scop 1.5MG/72Hr Patch] hydrALAZINE HCL [Apresoline] 50 mg PO TID 09/29/20 09/29/20 History Allergies Allergy/AdvReac Type Severity Reaction Status Date / Time tetracycline Allergy Anaphylaxis Verified 09/29/20 16:10 Physical Examination - Vital Signs Vital Signs: Vital Signs Temp Pulse Pulse Resp BP BP Pulse Ox 09/30/20 03:51 98.0 F 77 18 140/63 94 L 09/30/20 01:51 72 18 09/29/20 23:10 97.9 F 72 18 148/66 98 09/29/20 20:00 97.8 F 75 18 158/63 98 09/29/20 17:59 98 F 76 18 169/64 96 09/29/20 17:20 74 16 150/63 97 09/29/20 17:00 76 18 169/64 96 09/29/20 16:00 76 18 146/52 96 09/29/20 15:45 18 09/29/20 14:36 98 F 73 18 153/68 96 Intake and Output 09/29/20 09/30/20 09/30/20 22:59 06:59 14:59 Intake Total 125 1260 240 Balance 125 1260 240 Intake: Intake, IV Titration 125 600 Amount Sodium Chloride 0.9% 1, 75 600 000 ml @ 75 mls/hr IV . [id number] [facility] Rx#:[id number] cefTRIAXone 1 gm In 50 Sodium Chloride 0.9% 50 ml @ 100 mls/hr IVPB Q24HR [facility] Rx#:[id number] Oral 660 240 Other: Voiding Method Toilet Toilet # Voids 1 1 1 Weight 74.389 kg 73.8 kg GENERAL: The patient is lying in bed and is not in acute distress. CHEST: The heart rate is regular rate rhythm. No murmurs to auscultation. No carotid bruit bilaterally. LUNG: Clear to auscultation bilaterally no wheezing noted throughout. Not labored breathing. ABDOMEN/GI: Bowel sounds present in all 4 quadrants. No tenderness to palpation throughout. NEUROLOGICAL: Higher mental function: The patient is awake, alert, oriented to self, place and time. Able to identify watch and pen correctly. Patient is following commands. No aphasia and no neglect. Cranial nerves: The pupils are round, equal and reactive to light and accommodation. Visual patricia are full to confrontation throughout. Extraocular movement is intact no nystagmus is noted. Facial sensation is normal to touch throughout. The facial strength is normal throughout. Hearing is mildly to moderately decreased bilaterally to hand rub. Tongue is midline and moved [id number] without any difficulty. No dysarthria is noted. Shoulder shrug is normal bilaterally. Motor: Gait is somewhat wide based but was able to walk unassisted and not swaying towards on side or other but seems unsteady walking. The strength is bilateral arm extension are 5-/5, bilateral hand tax services professional are 4+ bilaterally. Otherwise 5 over 5 throughout. Normal tone and bulk. Cerebellum: Normal finger to nose bilaterally. Sensation: Sensation is normal to touch throughout. Reflexes (right/left): 2+ throughout uppers while lowers are 1+ Plantars are downgoing bilaterally. Results Mcleod virus PCR was not detected. - Laboratory Findings CBC and BMP: 09/30/20 07:00 09/30/20 07:00 Abnormal Lab Findings: Abnormal Labs 09/29/20 09/29/20 09/29/20 15:41 15:41 20:26 RBC 3.33 L Hgb 9.7 L Hct 27.7 L Lymphocytes # 0.6 L Sodium 128 L Chloride 94 L BUN 34 H Creatinine 1.32 H Glucose 229 H POC Glucose (mg/dL) 225 H Magnesium 1.5 L Total Bilirubin 0.1 L Total Protein 6.1 L Albumin Urine Appearance Ur Leukocyte Esterase Urine WBC Urine WBC Clumps Urine Bacteria Urine Mucus 09/29/20 09/30/20 09/30/20 Unknown 02:00 06:04 RBC Hgb Hct Lymphocytes # Sodium Chloride BUN Creatinine Glucose POC Glucose (mg/dL) 131 H 137 H Magnesium Total Bilirubin Total Protein Albumin Urine Appearance Cloudy H Ur Leukocyte Esterase Large H Urine WBC >182 H Urine WBC Clumps Many H Urine Bacteria Many H Urine Mucus Rare H 09/30/20 09/30/20 07:00 07:00 RBC 2.97 L Hgb 8.8 L Hct 24.6 L Lymphocytes # Sodium 132 L Chloride BUN 24 H Creatinine Glucose 132 H POC Glucose (mg/dL) Magnesium 1.3 L Total Bilirubin 0.1 L Total Protein 5.5 L Albumin 3.0 L Urine Appearance Ur Leukocyte Esterase Urine WBC Urine WBC Clumps Urine Bacteria Urine Mucus Assessment and Plan Assessment: Encephalopathy seems multifactorial with toxicmetabolic encephalopathy (electrolyte disturbance (hyponatremia, hypomagnesemia), uncontrolled sugar, acu te Kidney insufficiency), septic encephalopathy from acute UTI. Rule out brain metastasis/paraneoplastic syndrome (from history of bladder cancer) ---mentation improved Generalized weakness, lethargy/fatigue, lack of appetite due to above Dizziness and feeling light headed. Rule out brain mets or paraneoplastic syndrome vs orthostatic hypotension Hyponatremia with sodium on presentation of 128 Hypomagnesemia with potassium on presentation 1.5 Anemia Kidney insufficiency Acute urinary tract infection with history of recurrent urinary tract infection History of bladder cancer Diabetes mellitus Coronary artery disease peripheral vascular disease X tobacco use Plan: * She had outpatient MRI of the brain without contrast on 09/28/2020 is reported as age-related atrophy and chronic small vessel ischemic change. I personally reviewed the MRI of the brain and the has numerous small foci in the bilateral subcortical and I felt even in the cortical region had few small foci on the the temporal lesion bilaterally and that was seen on the FLAIR as well as over the right antelmo there is a hyperintensity lesion there * I ordered MRI of the brain and cervical spine with and without. This can be done if cleared by nephrology especially with kidney insufferably. * Physical therapy and occupation therapy are consulted * I ordered a routine EEG. I will not start the patient on an antiepileptic drug unless there is a platform discharges or seizure on the EEG. Likely to be done tomorrow since no Tech on staff today. * Ordered orthostatic vitals and echocardiogram. * Vitamin B12 and folate levels are ordered by GI team. * CT chest abdomen and pelvis are ordered and is pending. * We'll defer the electrolytes imbalance correction to nephrology and the primary team. * Nephrology, gastroenterology and urology are consulted. * Will defer the rest of medical management to specialist above that are consulted and to primary team. * Recommend the patient to follow-up with oncologist as outpatient * The plan was discussed with the patient nurse. Thank you for the consultation. Ap Gonzales M.D. Neuro-hospitalist Time with Patient: Greater than 30
[2020-09-30] MEDS ORDERED: ALPRAZolam 0.5 MG TAB PO STA (12:35)
[2020-09-30] MEDS: MAGNESIUM SULFATE-D5W PMX 1 GM in DEXTROSE/WATER 1 100ML.BAG IVPB SCH ×3 (12:36→18:17)
--- NOTE | 2020-09-30 13:11 | CT ---
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 Delayed images through the kidneys were obtained. Coronal/sa gittal reconstructions performed. CT DLP: 1351 mGycm Automated exposure control for dose reduction was used. FINDINGS: CHEST: Heart normal size without pericardial effusion. Some left main and LAD coronary artery calcifications are noted. Mild aortic valvular calcifications. Moderate atherosclerotic arch calcifications with kathryn vine configuration to the aortic arch. Moderate atelectatic change continues down the descending dres sing aorta. A number of borderline sized mediastinal lymph nodes measuring up to 1.0 cm. No frankly enlarged lymp h nodes by CT size criteria. Follow-up can reassess these lymph nodes given concern for neoplasm. No axillary or hilar lymphadenopathy seen. Mild centrilobular emphysema. Strandy atelectasis or scarring in the lower lungs. 5 mm left upper lobe pulmonary nodule, axial image 10. Tiny 3 mm subpleural pulmonary nodule lateral right lower lobe, axial image 36. 4 mm right mid lung pulmonary nodule, axial image 20. 4 mm left upper lobe pulmonary nodule, axial image 21. Some focal subpleural groundglass posteromedial right lower lobe suggesting atelectasis or scarring r elating to bulky endplate spondylosis. No pleural effusion. ABDOMEN: Small hiatal hernia. No focal liver lesion. Portal venous system is patent. Gallbladder measures upper limits of normal, l ikely due to fasting state. Mild diffuse thickening of the bilateral adrenal gland without discrete nodularity. Nonobstructive bilateral renal calculi measuring up to 5 mm. There is prominent bilateral pelviectasi s but no robyn ureteric dilatation identified. Symmetric uptake of contrast from the kidneys. The del ayed kidney images shows contrast beginning to collect in the renal pelves. 2.7 cm cortical cyst anterior midpole left kidney. Spleen and pancreas within normal limits. Moderate atherosclerotic calcifications or abdominal aorta and iliac arteries. Possible moderate to s evere segmental stenoses within the bilateral common iliac arteries. No dilated small bowel, and, free air. No mesenteric or retroperitoneal lymphadenopathy. Moderate stool burden. Sigmoid diverticulosis without acute diverticulitis. PELVIS: Bladder urine distended. There is pelvic floor relaxation noted with bulging laxity of the levator an i muscles. Uterus is anteverted. Both ovaries are visualized. No abnormal fluid collection the pelvis or pelvic lymphadenopathy. The mild focal thickening along the anterior midline bladder is up to 1.1 cm, refer to sagittal image 71 and axial image 114. 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 [id number] degenerative change at the hips . Moderate to advanced degenerative disc disease lower thoracic spine and throughout the lumbar spine with degenerative grade 1 anterolisthesis at L2-L3. [facility] within the lower thoracic IMPRESSION: 1. COPD WITH MILD EMPHYSEMA. A FEW PULMONARY NODULES MEASURING UP TO 5 MM. SIX-MONTH FOLLOW-UP CT [facility] RECOMMENDED TO REASSESS. SOME BORDERLINE SIZED MEDIASTINAL NODES MEASURING UP TO 1.0 CM CAN ALSO BE REASSESSED AT THAT TIME. 2. BILATERAL PELVIECTASIS OF UNCERTAIN ETIOLOGY. EXTRARENAL PELVES ARE POSSIBLE. SHORT INTERVAL FOLLO W-UP RENAL ULTRASOUND RECOMMENDED WELL CLINICAL FOLLOW-UP OF PATIENT'S KIDNEY FUNCTION TO EXCLU DE EARLY DEVELOPING HYDRONEPHROSIS. 3. SOME MILD FOCAL THICKENING ALONG THE ANTERIOR MIDLINE BASE OF THE BLADDER UP TO 1.1 CM MAY BE PART IAL VOLUME AVERAGING ARTIFACT. GIVEN THE CONCERN FOR PARANEOPLASTIC SYNDROME, CORRELATE WITH URINALYS IS AND URINE CYTOLOGY TO EXCLUDE A UROTHELIAL LESION. 4. MODERATE ATHEROSCLEROTIC CALCIFICATIONS THROUGHOUT THE ABDOMINAL AORTA AND ILIAC ARTERIES WITH SUG GESTION OF MODERATE TO SEVERE SEGMENTAL STENOSES IN THE BILATERAL COMMON ILIAC ARTERIES. 5. SIGMOID DIVERTICULOSIS WITHOUT ACUTE DIVERTICULITIS. SMALL HIATAL HERNIA. PELVIC FLOOR RELAXATION. NONOBSTRUCTIVE RENAL CALCULI MEASURING UP TO 5 MM.
--- NOTE | 2020-09-30 13:17 | P.GSCN ---
History of Present Illness Consult date: 09/30/20 Reason for Consult: Recurrent urine infections, history of bladder cancer History of present illness: This is an 85-year-old female who came in the hospital with an apparent change in mental status hyponatremia electrode imbalance immobility. Prior to the evaluation apparently she has had a couple of urine infections in August and September. She has a history of superficial bladder cancer base by history treated by in the past a. She has not followed up for several years by the patient's own choice a. The patient is a chronic smoker. The patient denies gross hematuria. Based on history it sounds as if she had superficial noninv asive bladder cancer. Patient had a computed tomography scan that was unremarkable with regards to the urinary tract other than some bladder wall thickening which is not specific. She states that she voids with normal without problems. Her urine on admission had many white cells and there were no red cells. Review of Systems All systems: negative - Constitutional Denies fever, Denies weight loss - EENT Eyes: denies blurred vision Ears, nose, mouth and throat: Denies dysphagia - Cardiovascular Denies chest pain, Denies shortness of breath - Respiratory Denies cough, Denies 7 - Gastrointestinal Reports as per HPI - Genitourinary Genitourinary: Denies dysuria, Denies hematuria - Integumentary Denies rash, Denies unusual bruising - Neurological Denies headaches, Denies syncope - Hematologic/Lymphatic Denies easy bleeding, Denies easy bruising Past Medical History Past Medical History: Cancer, COPD, Diabetes Mellitus, Hypertension Additional Past Medical History / Comment(s): bladder ca History of Any Multi-Drug Resistant Organisms: None Reported Past Surgical History: No Surgical Hx Reported Additional Past Surgical History / Comment(s): NOSE SURGERY, RIGHT KIDNEY URETHER SURGERY, Past Anesthesia/Blood Transfusion Reactions: No Reported Reaction Past Psychological History: No Psychological Hx Reported Smoking Status: Former smoker Past Alcohol Use History: Occasional Past Drug Use History: Marijuana - Past Family History Father Family Medical History: Cancer Additional Family Medical History / Comment(s): AAA Mother Family Medical History: CVA/TIA Medications and Allergies Home Medications Medication Instructions Recorded Confirmed Type Aspirin EC [Ecotrin Low Dose] 81 mg PO DAILY 09/29/20 09/29/20 History Atorvastatin [Lipitor] 40 mg PO HS 09/29/20 09/29/20 History Cefuroxime [Ceftin] 250 mg PO Q12H 09/29/20 09/29/20 History Cyanocobalamin [Vitamin B-12] 500 mcg PO DAILY 09/29/20 09/29/20 History Ferrous Sulfate [Feosol] 325 mg PO DAILY 09/29/20 09/29/20 History Insulin NPH Human Isophane 22 - 24 units SQ DAILY 09/29/20 09/29/20 History [NovoLIN N] Lisinopril-Hctz 10-12.5 mg 1 tab PO DAILY 09/29/20 09/29/20 History [Zestoretic 10-12.5] Meclizine [Antivert] 12.5 mg PO TID 09/29/20 09/29/20 History Pantoprazole Sodium [Protonix] 40 mg PO BID 09/29/20 09/29/20 History Scopolamine 1.5MG/72Hr Patch 1 patch TRANSDERM Q72H 09/29/20 09/29/20 History [Transderm-Scop 1.5MG/72Hr Patch] hydrALAZINE HCL [Apresoline] 50 mg PO TID 09/29/20 09/29/20 History Allergies Allergy/AdvReac Type Severity Reaction Status Date / Time tetracycline Allergy Anaphylaxis Verified 09/29/20 16:10 Surgical - Exam Vital Signs Temp Pulse Resp BP Pulse Ox 98 F 73 18 153/68 96 09/29/20 14:36 09/29/20 14:36 09/29/20 14:36 09/29/20 14:36 09/29/20 14:36 - General well developed, well nourished, no distress - Eyes PERRL - ENT no hearing loss - Neck no masses - Respiratory normal expansion, normal respiratory effort - Cardiovascular Rhythm: regular - Abdomen Abdomen: soft, non tender - Musculoskeletal normal posture - Psychiatric oriented to time, oriented to person, oriented to place, speech is normal, memory intact, other Results - Labs 09/30/20 07:00 09/30/20 07:00 Abnormal Lab Results - Last 24 Hours (Table) 09/29/20 09/29/20 09/29/20 Range/Units 15:41 15:41 20:26 RBC 3.33 L (3.80-5.40) m/uL Hgb 9.7 L (11.4-16.0) gm/dL Hct 27.7 L (34.0-46.0) % Lymphocytes # 0.6 L (1.0-4.8) k/uL Sodium 128 L (137-145) mmol/L Chloride 94 L (98-107) mmol/L BUN 34 H (7-17) mg/dL Creatinine 1.32 H (0.52-1.04) mg/dL Glucose 229 H (74-99) mg/dL POC Glucose (mg/dL) 225 H (75-99) mg/dL Magnesium 1.5 L (1.6-2.3) mg/dL Total Bilirubin 0.1 L (0.2-1.3) mg/dL Total Protein 6.1 L (6.3-8.2) g/dL Albumin (3.5-5.0) g/dL Urine Appearance (Clear) Ur Leukocyte Esterase (Negative) Urine WBC (0-5) /hpf Urine WBC Clumps (None) /hpf Urine Bacteria (None) /hpf Urine Mucus (None) /hpf 09/29/20 09/30/20 09/30/20 Range/Units Unknown 02:00 06:04 RBC (3.80-5.40) m/uL Hgb (11.4-16.0) gm/dL Hct (34.0-46.0) % Lymphocytes # (1.0-4.8) k/uL Sodium (137-145) mmol/L Chloride (98-107) mmol/L BUN (7-17) mg/dL Creatinine (0.52-1.04) mg/dL Glucose (74-99) mg/dL POC Glucose (mg/dL) 131 H 137 H (75-99) mg/dL Magnesium (1.6-2.3) mg/dL Total Bilirubin (0.2-1.3) mg/dL Total Protein (6.3-8.2) g/dL Albumin (3.5-5.0) g/dL Urine Appearance Cloudy H (Clear) Ur Leukocyte Esterase Large H (Negative) Urine WBC >182 H (0-5) /hpf Urine WBC Clumps Many H (None) /hpf Urine Bacteria Many H (None) /hpf Urine Mucus Rare H (None) /hpf 09/30/20 09/30/20 09/30/20 Range/Units 07:00 07:00 11:55 RBC 2.97 L (3.80-5.40) m/uL Hgb 8.8 L (11.4-16.0) gm/dL Hct 24.6 L (34.0-46.0) % Lymphocytes # (1.0-4.8) k/uL Sodium 132 L (137-145) mmol/L Chloride (98-107) mmol/L BUN 24 H (7-17) mg/dL Creatinine (0.52-1.04) mg/dL Glucose 132 H (74-99) mg/dL POC Glucose (mg/dL) 364 H (75-99) mg/dL Magnesium 1.3 L (1.6-2.3) mg/dL Total Bilirubin 0.1 L (0.2-1.3) mg/dL Total Protein 5.5 L (6.3-8.2) g/dL Albumin 3.0 L (3.5-5.0) g/dL Urine Appearance (Clear) Ur Leukocyte Esterase (Negative) Urine WBC (0-5) /hpf Urine WBC Clumps (None) /hpf Urine Bacteria (None) /hpf Urine Mucus (None) /hpf Microbiology - Last 24 Hours (Table) 09/29/20 Unknown Urine Culture - Preliminary Urine,Voided Diabetes panel 09/29/20 09/30/20 Range/Units 15:41 07:00 Sodium 128 L 132 L (137-145) mmol/L Potassium 4.6 4.1 (3.5-5.1) mmol/L Chloride 94 L 102 (98-107) mmol/L Carbon Dioxide 24 23 (22-30) mmol/L BUN 34 H 24 H (7-17) mg/dL Creatinine 1.32 H 1.01 (0.52-1.04) mg/dL Glucose 229 H 132 H (74-99) mg/dL Calcium 9.8 9.1 (8.4-10.2) mg/dL AST 20 18 (14-36) U/L ALT 19 16 (4-34) U/L Alkaline Phosphatase 79 61 (38-126) U/L Total Protein 6.1 L 5.5 L (6.3-8.2) g/dL Albumin 3.5 3.0 L (3.5-5.0) g/dL Thyroid panel 09/29/20 Range/Units 15:41 TSH 2.290 (0.465-4.680) mIU/L Calcium panel 09/29/20 09/30/20 Range/Units 15:41 07:00 Calcium 9.8 9.1 (8.4-10.2) mg/dL Albumin 3.5 3.0 L (3.5-5.0) g/dL Pituitary panel 09/29/20 09/30/20 Range/Units 15:41 07:00 Sodium 128 L 132 L (137-145) mmol/L Potassium 4.6 4.1 (3.5-5.1) mmol/L Chloride 94 L 102 (98-107) mmol/L Carbon Dioxide 24 23 (22-30) mmol/L BUN 34 H 24 H (7-17) mg/dL Creatinine 1.32 H 1.01 (0.52-1.04) mg/dL Glucose 229 H 132 H (74-99) mg/dL Calcium 9.8 9.1 (8.4-10.2) mg/dL TSH 2.290 (0.465-4.680) mIU/L Adrenal panel 09/29/20 09/30/20 Range/Units 15:41 07:00 Sodium 128 L 132 L (137-145) mmol/L Potassium 4.6 4.1 (3.5-5.1) mmol/L Chloride 94 L 102 (98-107) mmol/L Carbon Dioxide 24 23 (22-30) mmol/L BUN 34 H 24 H (7-17) mg/dL Creatinine 1.32 H 1.01 (0.52-1.04) mg/dL Glucose 229 H 132 H (74-99) mg/dL Calcium 9.8 9.1 (8.4-10.2) mg/dL Total Bilirubin 0.1 L 0.1 L (0.2-1.3) mg/dL AST 20 18 (14-36) U/L ALT 19 16 (4-34) U/L Alkaline Phosphatase 79 61 (38-126) U/L Total Protein 6.1 L 5.5 L (6.3-8.2) g/dL Albumin 3.5 3.0 L (3.5-5.0) g/dL - Imaging CT scan - abdomen: report reviewed, image reviewed CT scan - pelvis: report reviewed, image reviewed Assessment and Plan Assessment: Impression: Anal status changes neurologic changes. Multiple medical illnesses as outlined in Dr. Bethea H&P. History of what sounds like superficial bladder cancer. Recurrent urine infections Recommendations: I'll review the records in the chart to assess the status of her bladder cancer last seen several years ago. Urine culture is pending. Pending the results of these evaluations as a further recommendations. She'll probably need a cystoscopy which can be achieved as an outpatient. She would need to be on antibiotics for the urine infection before I would do cystoscopy so as not to confuse inflammation from cancer. Time with Patient: Greater than 30
--- NOTE | 2020-09-30 15:49 | MR ---
EXAMINATION TYPE: MR brain/cspine wo/w DATE OF EXAM: 09/30/2020 COMPARISON: MR brain 09/28/2020 HISTORY: Unsteady gait, dizziness TECHNIQUE: Multiplanar, multisequence images of the brain and brainstem, cervical spine is performed without and with IV contrast, utilizing 7.0 ml mL intravenous Gadavist . FINDINGS: There is motion on the exam. Diffusion weighted images demonstrate no evidence of a recent infarct or other diffusion abnormality. There is no extra-axial fluid collection or significant whitlock ge in white matter signal abnormality. The ventricular system and cisternal spaces are normal in siz e and appearance. The brain volume is age appropriate, focus of encephalomalacia is present along th e basal ganglia on the left. Midline structures demonstrate normal morphology. The craniocervical junction appears within normal limits. Post contrast images demonstrate no abnormal enhancement. The dural venous sinuses appear pa tent. The visualized sinuses are clear and the globes are intact. IMPRESSION: Stable brain MRI, no restricted diffusion or abnormal enhancement to suggest metastatic d isease. Cervical spine MRI: There is multilevel spondylosis. Loss of disc height signal is present at C3-4, C 4-5, C5-6, there is endplate discogenic marrow signal change. Cervical cord signal is maintained. The re is motion on the exam. No significant spinal stenosis. There is multilevel facet arthropathy ford e. Multilevel foraminal encroachment is noted. Posterior extension endplate disc complexes at interve rtebral levels shows anterior mass effect on the thecal sac, greatest at C3-4, C4-5. No abnormal enha ncement following contrast menstruation. IMPRESSION: There is motion on exam. Degenerative disc disease, facet arthropathy, foraminal encroach ment. No significant spinal stenosis. No abnormal enhancement to suggest metastatic disease is eviden t.
[2020-09-30 16:45] LABS: Glucose,Whole Blood 61 mg/dL (75-99)
[2020-09-30 17:00] LABS: Glucose,Whole Blood 62 mg/dL (75-99)
[2020-09-30 17:16] LABS: Glucose,Whole Blood 73 mg/dL (75-99)
[2020-09-30 18:10] LABS: Glucose,Whole Blood 171 mg/dL (75-99)
[2020-09-30 21:02] LABS: % Iron Saturation 13.11 (12.00-45.00)
[2020-09-30 21:10] LABS: Ferritin 29.9 ng/mL (10.0-291.0)
[2020-09-30 21:11] LABS: Glucose,Whole Blood 320 mg/dL (75-99)
[2020-09-30] MEDS: ATORVASTATIN 40 MG TAB PO SCH (21:30)
[2020-09-30] MEDS: ALPRAZolam 0.25 MG TAB PO PRN (21:40)
[2020-10-01 02:14] LABS: Glucose,Whole Blood 185 mg/dL (75-99)
[2020-10-01] MEDS: SODIUM CHLORIDE 0.9% 1,000 ML IV SCH ×2 (04:57→12:52)
[2020-10-01 06:19] LABS: Glucose,Whole Blood 216 mg/dL (75-99)
[2020-10-01] MEDS: INSULIN ASPART (NovoLOG) 100 UNIT/ML VIAL SQ SCH ×4 (06:27→20:34)
[2020-10-01 08:12] LABS: Calcium 9.3 mg/dL (8.4-10.2); Magnesium 1.9 mg/dL (1.6-2.3); Potassium 5.1 mmol/L (3.5-5.1)
[2020-10-01] MEDS: hydrALAZINE HCL 50 MG TAB PO SCH (09:00)
[2020-10-01] MEDS: INSULIN NPH 300 UNIT/3 ML VIAL SQ SCH (09:01)
[2020-10-01] MEDS: FERROUS SULFATE 325 MG TAB PO SCH (09:01)
[2020-10-01] MEDS: CYANOCOBALAMIN 500 MCG TAB PO SCH (09:01)
[2020-10-01] MEDS: MECLIZINE 12.5 MG TAB PO SCH ×3 (09:01→20:33)
[2020-10-01] MEDS: ASPIRIN 81 MG PO SCH (09:01)
[2020-10-01] MEDS: PANTOPRAZOLE 40 MG TABLET PO SCH ×2 (09:01→20:33)
--- NOTE | 2020-10-01 10:00 | P.PN ---
Subjective Patient is seen in follow-up for acute kidney injury and hyponatremia. GFR back to baseline. Sodium level 130 today. Oral intake fair. No vomiting or diarrhea. Maintained on normal saline. Vital signs are stable. General: The patient appeared well nourished and normally developed. HEENT: Head exam is unremarkable. Neck is without jugular venous distension. LUNGS: Breath sounds decreased. HEART: Rate and Rhythm are regular. ABDOMEN: Soft, no distention. EXTREMITITES: No edema. Objective - Vital Signs Vital signs: Vital Signs Temp 97.7 F 09/30/20 20:00 Pulse 71 10/01/20 04:00 Resp 18 10/01/20 04:00 BP 139/67 10/01/20 04:00 Pulse Ox 95 10/01/20 04:00 Intake & Output 09/30/20 10/01/20 10/01/20 18:59 06:59 18:59 Intake Total 1260 180 Balance 1260 180 Weight 75.3 kg Intake: Oral 1260 180 Other: Voiding Method Toilet # Voids 1 3 - Labs CBC & Chem 7: 09/30/20 07:00 10/01/20 07:04 Labs: Abnormal Lab Results - Last 24 Hours (Table) 09/30/20 09/30/20 09/30/20 Range/Units 07:00 11:55 16:43 Sodium (137-145) mmol/L Glucose (74-99) mg/dL POC Glucose (mg/dL) 364 H 61 L (75-99) mg/dL Iron 35 L (50-170) ug/dL 09/30/20 09/30/20 09/30/20 Range/Units 16:59 17:14 18:09 Sodium (137-145) mmol/L Glucose (74-99) mg/dL POC Glucose (mg/dL) 62 L 73 L 171 H (75-99) mg/dL Iron (50-170) ug/dL 09/30/20 10/01/20 10/01/20 Range/Units 21:10 02:08 06:18 Sodium (137-145) mmol/L Glucose (74-99) mg/dL POC Glucose (mg/dL) 320 H 185 H 216 H (75-99) mg/dL Iron (50-170) ug/dL 10/01/20 Range/Units 07:04 Sodium 130 L (137-145) mmol/L Glucose 198 H (74-99) mg/dL POC Glucose (mg/dL) (75-99) mg/dL Iron (50-170) ug/dL Microbiology - Last 24 Hours (Table) 09/29/20 Unknown Urine Culture - Preliminary Urine,Voided Gram Neg Bacilli Assessment and Plan Plan: Assessment: 1. Acute kidney injury mostly prerenal from poor intake and lisinopril/Hydrochlorothiazide. Improved with IV hydration. Creatinine 0.83 today. 2. Hypovolemic hyponatremia for poor intake and further worsened with the use of thiazide diuretic. Also component of hypertonicity from hyperglycemia. Urine sodium 51 and urine osmolality 321. TSH normal. 3. Benign hypertension. Stable. 4. Diabetes mellitus. 5. Hypomagnesemia from poor intake and as a diuretic. Replaced. Better. 6. UTI. Urine culture positive for gram-negative bacilli maintained on antibiotics. Plan: Hep-Lock IV fluids. Encourage oral intake, particularly protein. 1200 mL fluid restriction. Hold lisinopril for now. Avoid thiazide diuretics in the future.
[2020-10-01 10:47] LABS: HCT 25.9 % (34.0-46.0); HGB 8.9 gm/dL (11.4-16.0); MCH 29.1 pg (25.0-35.0); MCHC 34.4 g/dL (31.0-37.0); MCV 84.7 fL (80.0-100.0); Mean Platelet Volume 8.2; Platelet Count 294 k/uL (150-450); RBC 3.06 m/uL (3.80-5.40); RDW 12.3 % (11.5-15.5); WBC 6.7 k/uL (3.8-10.6)
[2020-10-01 12:07] LABS: Glucose,Whole Blood 234 mg/dL (75-99)
[2020-10-01] MEDS ORDERED: hydrALAZINE HCL 25 MG TAB PO STA (13:36)
--- NOTE | 2020-10-01 13:45 | P.CONS ---
History of Present Illness - Reason for Consult Consult date: 10/01/20 GI bleed Requesting physician: Johnny Flynn - Chief Complaint Weakness - History of Present Illness This patient was attempted to be seen yesterday for consult, however was down for MRI This is a pleasant 85-year-old female presented to the emergency department with weakness, decreased appetite, nausea, and dizziness. She has a past medical history including bladder cancer, COPD, diabetes mellitus, hypertension. She states 5 days after she received her Covid vaccine she started not feeling well, she was having nausea, weakness, and fatigue. She states she has been put on oral iron and her stools have been dark from the, she did have some diarrhea and constipation. She states she has issues with her bowels and her normal pattern is for a bowel movement for every 3-5 days. She had some loose stools last Monday and no bowel movement since. Her last colonoscopy was 6 years ago at [facility], she states no complications within normal findings she has no history of peptic ulcer disease, GERD, and does not use NSAIDs regularly. She does take a daily low-dose aspirin. She denies any abdominal pain, nausea, or vomiting. She is stating she does feel better today. States she had a bowel movement which was dark, but she states normal for her due to her iron. She denies any hematemesis, or rectal bleeding. She had a CT chest, abdomen and pelvis: COPD with mild emphysema a few pulmonary nodules measuring up to 5 mm. Six-month follow-up chest CT recommended to reassess. Bilateral pelviectasis of certain etiology. Extrarenal pelves are possible short interval follow-up renal ultrasound recommended as well as clinical follow-up of patient's kidney function to exclude early developing hydronephrosis. Some mild focal thickening along the a nterior midline base of the bladder up to 1.1 cm may be partial volume averaging artifact. Given the concern for paraneoplastic syndrome. Correlate with urinalysis and urine cytology to exclude ureteral lethal lesion. Moderate arthrosclerotic calcifications throughout the abdominal aorta and iliac arteries with suggestion of moderate to severe segmental stenosis in the bilateral common iliac arteries. Sigmoid diverticulosis without acute diverticulitis, small hiatal hernia. Pelvic floor relaxation. Nonobstructive renal calculi. Initial hemoglobin on admission was 9.7. Today's labs include WBC 6.7, hemoglobin 8.9, hematocrit 25.9, platelets 294,000. Total bilirubin 0.1, alkaline phosphatase 61, AST 18, ALT 16 Past Medical History Past Medical History: Cancer, COPD, Diabetes Mellitus, Hypertension Additional Past Medical History / Comment(s): bladder ca History of Any Multi-Drug Resistant Organisms: None Reported Past Surgical History: No Surgical Hx Reported Additional Past Surgical History / Comment(s): NOSE SURGERY, RIGHT KIDNEY URETH ER SURGERY, Past Anesthesia/Blood Transfusion Reactions: No Reported Reaction Past Psychological History: No Psychological Hx Reported Smoking Status: Former smoker Past Alcohol Use History: Occasional Past Drug Use History: Marijuana - Past Family History Father Family Medical History: Cancer Additional Family Medical History / Comment(s): AAA Mother Family Medical History: CVA/TIA Medications and Allergies Home Medications Medication Instructions Recorded Confirmed Type Aspirin EC [Ecotrin Low Dose] 81 mg PO DAILY 09/29/20 09/29/20 History Atorvastatin [Lipitor] 40 mg PO HS 09/29/20 09/29/20 History Cefuroxime [Ceftin] 250 mg PO Q12H 09/29/20 09/29/20 History Cyanocobalamin [Vitamin B-12] 500 mcg PO DAILY 09/29/20 09/29/20 History Ferrous Sulfate [Feosol] 325 mg PO DAILY 09/29/20 09/29/20 History Insulin NPH Human Isophane 22 - 24 units SQ DAILY 09/29/20 09/29/20 History [NovoLIN N] Lisinopril-Hctz 10-12.5 mg 1 tab PO DAILY 09/29/20 09/29/20 History [Zestoretic 10-12.5] Meclizine [Antivert] 12.5 mg PO TID 09/29/20 09/29/20 History Pantoprazole Sodium [Protonix] 40 mg PO BID 09/29/20 09/29/20 History Scopolamine 1.5MG/72Hr Patch 1 patch TRANSDERM Q72H 09/29/20 09/29/20 History [Transderm-Scop 1.5MG/72Hr Patch] hydrALAZINE HCL [Apresoline] 50 mg PO TID 09/29/20 09/29/20 History Allergies Allergy/AdvReac Type Severity Reaction Status Date / Time tetracycline Allergy Anaphylaxis Verified 09/29/20 16:10 Physical Exam Vitals: Vital Signs Temp Pulse Pulse Pulse Resp BP BP 10/01/20 04:00 71 18 139/67 09/30/20 23:42 76 18 09/30/20 20:00 97.7 F 80 18 09/30/20 18:23 76 80 82 146/58 156/64 09/30/20 16:00 98.0 F 82 18 09/30/20 14:00 76 18 09/30/20 12:00 76 18 BP Pulse Ox 10/01/20 04:00 95 09/30/20 23:42 143/68 95 09/30/20 20:00 153/67 94 L 09/30/20 18:23 116/51 09/30/20 16:00 167/69 98 09/30/20 14:00 09/30/20 12:00 184/75 99 Intake and Output 09/30/20 10/01/20 10/01/20 22:59 06:59 14:59 Intake Total 780 180 Balance 780 180 Intake: Oral 780 180 Other: # Voids 1 3 Weight 75.3 kg General appearance: The patient is alert, oriented, appears in no acute distress. HET: Head is normocephalic and atraumatic. Conjunctiva pink. Sclera anicteric.. Oropharynx is clear without lesions. Neck: Supple without lymphadenopathy. Trachea midline. Heart: S1 S2. Regular rate and rhythm. Lungs: Clear to auscultation. Abdomen: Soft, nontender, nondistended with bowel sounds. Extremities: Normal skin color and turgor. No pedal edema. Neurological: No focal deficits. Alert and oriented 3. Results CBC & Chem 7: 10/01/20 05:10/01/20 07:04 Labs: Abnormal Lab Results - Last 24 Hours (Table) 09/30/20 09/30/20 09/30/20 Range/Units 07:00 11:55 16:43 Sodium (137-145) mmol/L Glucose (74-99) mg/dL POC Glucose (mg/dL) 364 H 61 L (75-99) mg/dL Iron 35 L (50-170) ug/dL 09/30/20 09/30/20 09/30/20 Range/Units 16:59 17:14 18:09 Sodium (137-145) mmol/L Glucose (74-99) mg/dL POC Glucose (mg/dL) 62 L 73 L 171 H (75-99) mg/dL Iron (50-170) ug/dL 09/30/20 10/01/20 10/01/20 Range/Units 21:10 02:08 06:18 Sodium (137-145) mmol/L Glucose (74-99) mg/dL POC Glucose (mg/dL) 320 H 185 H 216 H (75-99) mg/dL Iron (50-170) ug/dL 10/01/20 Range/Units 07:04 Sodium 130 L (137-145) mmol/L Glucose 198 H (74-99) mg/dL POC Glucose (mg/dL) (75-99) mg/dL Iron (50-170) ug/dL Microbiology - Last 24 Hours (Table) 09/29/20 Unknown Urine Culture - Preliminary Urine,Voided Gram Neg Bacilli Comments: She had a CT chest, abdomen and pelvis: COPD with mild emphysema a few pulmonary nodules measuring up to 5 mm. Six-month follow-up chest CT recommended to reassess. Bilateral pelviectasis of certain etiology. Extrarenal pelves are possible short interval follow-up renal ultrasound recommended as well as clinical follow-up of patient's kidney function to exclude early developing hydronephrosis. Some mild focal thickening along the anterior midline base of the bladder up to 1.1 cm may be partial volume averaging artifact. Given the concern for paraneoplastic syndrome. Correlate with urinalysis and urine cytology to exclude ureteral lethal lesion. Moderate arthrosclerotic calcifications throughout the abdominal aorta and iliac arteries with suggestion of moderate to severe segmental stenosis in the bilateral common iliac arteries. Sigmoid diverticulosis without acute diverticulitis, small hiatal hernia. Pelvic floor relaxation. Nonobstructive renal calculi. Assessment and Plan (1) Normochromic normocytic anemia Narrative/Plan: An 85-year-old female who presented to the emergency department with complaints of weakness, dizziness, decreased appetite and some nausea. Patient states she began symptoms 5 days after receiving her covert vaccine on September 18. She has a history of chronic anemia and was on by mouth iron. Her last reported colonoscopy was approximately 6 years ago at [facility] which she states was normal. She has no history of peptic ulcer disease or acid reflux. She denies regular use of NSAIDs, does take a low-dose daily aspirin daily. She states she's had no signs or symptoms of a GI bleed. States she has dark stools but that is normal for her due to her iron. She had iron studies are consistent with iron deficiency anemia. Hemoglobin is stable at 8.9 with no signs or symptoms of GI bleed. We'll continue to monitor, can consider endoscopy evaluation and further drop in hemoglobin or signs or symptoms of GI bleed. Current Visit: Yes Status: Acute Code(s): D64.9 - ANEMIA, UNSPECIFIED SNOMED Code(s): 42817071 (2) Hyponatremia Current Visit: Yes Status: Acute Code(s): E87.1 - HYPO-OSMOLALITY AND HYPONATREMIA SNOMED Code(s): 64505216 (3) Weakness Current Visit: Yes Status: Acute Code(s): R53.1 - WEAKNESS SNOMED Code(s): 90227659 Plan: 1. Consistent carbohydrate diet 2. CT of chest, abdomen, pelvis reviewed 3. Daily CBC 4. Iron studies ordered and reviewed 5. Continue to monitor for signs and symptoms of GI bleed 6. No plans for endoscopic evaluation at this time 7. Continue oral iron Thank you for this consultation, we will continue to follow Dr. Quiroz I agree with the dictator's note, documented as a scribe by Yulissa Lowe.
--- NOTE | 2020-10-01 13:57 | P.PN ---
Subjective Progress Note Date: 10/01/20 HISTORY OF PRESENT ILLNESS 85-year-old female in my office patient who has multiple medical problem known to have history of bladder cancer, atherosclerotic heart disease, history of diabetes, history of CVA, recurrent UTI, chronic smoking and peripheral vascular disease who was hospitalized recently at [facility] for TIA and found to have recurrent UTI with encephalopathy. Patient was treated in full seen back in the office continue to have significant symptom with abnormal balance gait along with severe vestibulopathy and dizziness. Found to have another UTI which was treated as well and patient was referred for outpatient MRI showed significant small vessel disease with multiple spot of abdomen radiation consistent with most likely TIA and small vessel disease no sign of large CVA was found. And no sign of any questionable of metastasis at the time. Patient has been declining very aggressively not been able to ambulate, walk, take care of herself, not been able to walk to the bathroom shower or fix her meals. Family found her change drastically in the last 3 weeks ended up coming to the emergency department at [facility] where was seen and evaluated found to have acute kidney injury with significant hyponatremia along with mild hypomagnesemia and mild anemia with no sign of active bleed at the time, her urine test came back positive for the third time despite an aggressive treatment and with her history of bladder cancer that make the suspicion of malignancy in the bladder is much higher, also patient has multiple sign and symptom consistent with paraneoplastic syndrome specially with her chronic history of smoking. Chest x-ray came back negative, with her kidney function decided to delay going for CAT scan of the abdomen pelvis and the chest still patient is well-hydrated and patient will be admitted for recurrent UTI with possible neoplasm in the bladder also workup for neoplasm in the lung or in the soft tissue in the abdominal and pelvis area to be done still watch for any gastrointestinal bleed. Her blood sugar has been significantly elevated despite using her insulin which will be adjusted at this point. 09/30: Patient states that she feels about the same from yesterday. She was noted have a drop in her hemoglobin and consult with GI was added, stool for occult study. We've also added a consult for urology as patient has history of bladder cancer and has had multiple frequent urinary tract infections recently. She was seen by Dr. Sinclair in the past who has retired. There is also consult in place for neurology for occipital neuralgia possible trigeminal neuralgia. Nephrology to follow for hyponatremia and acute kidney injury. Patient has been afebrile, heart rate 77, blood pressure 140/63, pulse ox 94% on room air. Repeat blood work reveals WBC 5.5, hemoglobin 8.8, platelet count 274. Sodium 132, potassium 4.1, chloride 102, CO2 23, BUN 24 creatinine 1.01. Blood sugars are running between 132 and 225. Magnesium 1.3, total bilirubin 0.1, AST 18, ALT 16, alkaline phosphatase 61. Urine culture is in progress. 10/01: Patient has been seen by neurology and ordered MRI of the brain and cervical spine, EEG. Encephalopathy thought to be multi-factorial with toxic metabolic encephalopathy and septic encephalopathy, rule out brain metastases/paraneoplastic syndrome. MRI of the brain revealed degenerative disc disease, facet arthropathy, foraminal encroachment. No significant spinal stenosis. No abnormal enhancement to suggest metastatic disease. Patient is seen by Dr. Valdes for acute kidney injury secondary to poor renal intake and lisinopril/hydrochlorothiazide. IV fluids hep-locked, increase oral intake, 1200 mL fluid restriction, hold lisinopril. Avoid thiazide diuretics in the future. Patient has been seen by Dr. Ag for patient with history of bladder cancer, he will review patient's records. Patient will probably need cystoscopy which can be done as an outpatient and will need to be on antibiotics for UTI. CAT scan of the chest abdomen and pelvis revealed COPD with mild emphysema. Pupil [place] nodules measuring up to 5 mm. Some borderline mediastinal nodes measuring up to 1 cm. Bilateral pelviectasis of uncertain etiology. Extrarenal pelvises are possible. Short interval follow-up with ultrasound recommended. Some mild focal thickening along the anterior midline base of the bladder up to 1.1 cm maybe partial volume averaging artifact. Correlate for urinalysis and urine cytology. Moderate atherosclerotic calcifications throughout the abdominal aorta and iliac arteries suggestive of moderate to severe segmental stenosis in the bilateral common iliac arteries. Sigmoid diverticulosis without diverticulitis. Small hiatal hernia. Nonobstructive renal calculi measuring up to 5 mm. No signs of malignancy were found. EEG and echocardiogram are scheduled for today. Patient's daughter Yanet was contacted over the phone and discussed discharge planning. Family do not live with the patient and they are currently staying with her due to increased weakness and debility. Patient to be seen by PT and OT and cyanide case hardener/social worker delinquency prevention to follow for discharge planning. We will be planning for [place] tomorrow. REVIEW OF SYSTEMS Constitutional: No fever, no chills, no night sweats. No weight change. No weakness, fatigue or lethargy. No daytime sleepiness. EENT: No headache. No blurred vision or double vision, no loss of vision. No loss of Hearing, no ringing in the ears, no dizziness. No nasal drainage or congestion. No epistaxis. No sore throat. Lungs: Shortness of breath with minimum exertion. Cardiovascular: PND orthopnea palpitations with slight fluctuation of the blood pressure no typical chest pain. Abdominal: Abdominal pain and slightly decreased appetite No nausea, vomiting. No diarrhea. No constipation. No bloody or tarry stools. Genitourinary: Recurrent UTI 3 times despite treatment. No urinary retention. Musculoskeletal: Positive myalgia and arthralgia without any rash this time no soft tissue infection Integumentary: No wounds, no lesions. No rash or pruritus. No unusual bruising. No change in hair or nails. Neurologic: Change mental status with abnormal balance and gait significant dizziness question left vestibulopathy with worsening memory Psychiatric: No depression. No anxiety. No mood swings. Endocrine: No abnormal blood sugars. No weight change. PHYSICAL EXAMINATION Gen: This is an 85-year-old female. She is resting bed appears comfortable and in no acute distress. HEENT: Head is atraumatic, normocephalic. Pupils equal, round. Sclerae is anicteric. NECK: Supple. No JVD. No lymphadenopathy. No thyromegaly. Can't feel any mass or ulceration at this time LUNGS: Decreased breath some bilaterally specially in the left side worsening rhonchi and slight expiratory wheezes. HEART: Regular rhythm and rate, S1, S2, positive PVCs with systolic murmur in the apex ABDOMEN: Soft. Bowel sounds are present. No masses. Slight discomfort in the lower abdominal region area. EXTREMITIES: Significant discoloration decreased pulse in the peripheral area s pecially lower extremity NEUROLOGICAL: Patient is awake, alert and oriented 3. Cranial nerves 2 through 12 are grossly intact. Positive generalized weakness significantly abnormal balance and gait. ASSESSMENT AND PLAN 1. Metabolic encephalopathy affected by UTI, TIA, hyponatremia, anemia, acute kidney injury and possible paraneoplastic syndrome, improved. 2. TIA small vessel disease: MRI was done, carotid and CT of the neck to be reviewed patient will be seen by neurology at this point she can benefit from remain on antiplatelet agent beside aspirin at this point. 3. Hyponatremia, improving: With mild SIADH not a clear etiology could be sign of malignancy and paraneoplastic syndrome, fluid restriction and watch symptoms repeat CMP, consult nephrology. 4. Anemia and possible GI bleed: Stool for Hemoccult will be done continue pantoprazole and watch for any active aggressive completed this time patient currently is not on any anticoagulation but will continue GI prophylaxis. 5. Recurrent UTI despite treatment and management 3 times so far, patient survival of bladder cancer and this is probably sign of recurrent cancer she will require cystoscopy this time urine will be cultured again continue aggressive treatment for total of 10 days to 2 weeks. 6. Acute kidney injury: With stage II chronic kidney disease: Been diabetic this is most likely diabetic nephropathy with worsening symptom with UTI and hypoperfusion, gentle hydration repeat CMP in the next 24 hours.. 7. Atherosclerotic heart disease: With no sign of chest pain or angina at this time patient testing were done last time close to a year ago echocardiogram was done I believe last few month with try to get copy of the results from the [facility]. 8. Type 2 diabetes on insulin: Not well controlled last A1c has been about 8.5, patient has been on short acting NovoLog along with Humulin pen she had refuse Lantus and NovoLog before meals meals before patient had few episodes of hypoglycemia on oral agent and could not afford this SGLP 2 product. His kidney function will allow we will add smaller dose of metformin or even if possible smaller dose of Prandin at this point. When of the best option for patients probably to do Trulicity, and switch her Novolin N to Toujeo or Lantus and probably stay on sliding scales before meals. 9. Memory loss: Most likely from small vessel disease if no improvement trial of smaller dose of Donepazil for the next few weeks. 10. Hyperlipidemia: Remain on atorvastatin 40 mg daily. 11 hypertension: Hold lisinopril HCT 10/12.5 mg. Increase hydralazine to 75 mg 3 times a day. 12 possible paraNeoplastic syndrome has been ruled out by CAT scan. 13 GI prophylaxis: Remain on pantoprazole. 14 DVT prophylaxis: Early mobilization and knee-high FARHAN hose no subcutaneous heparin at this point specially with anemia and possible GI bleed. CODE STATUS: No code DISCHARGE PLAN on Monday. Consult in place with PT, OT and social worker delinquency prevention. Impression and plan of care have been directed as dictated by the signing physician. Cori Austin nurse practitioner acting as scribe for signing physician. Objective - Vital Signs Vital signs: Vital Signs Temp 97.7 F 09/30/20 20:00 Pulse 71 10/01/20 04:00 Resp 18 10/01/20 04:00 BP 139/67 10/01/20 04:00 Pulse Ox 95 10/01/20 04:00 Intake & Output 09/30/20 10/01/20 10/01/20 18:59 06:59 18:59 Intake Total 1260 Balance 1260 Weight 75.3 kg Intake: Oral 1260 Other: Voiding Method Toilet # Voids 1 3 - Labs CBC & Chem 7: 10/01/20 05:27 10/01/20 07:04 Labs: Abnormal Lab Results - Last 24 Hours (Table) 09/30/20 09/30/20 09/30/20 Range/Units 07:00 11:55 16:43 Sodium (137-145) mmol/L Glucose (74-99) mg/dL POC Glucose (mg/dL) 364 H 61 L (75-99) mg/dL Iron 35 L (50-170) ug/dL 09/30/20 09/30/20 09/30/20 Range/Units 16:59 17:14 18:09 Sodium (137-145) mmol/L Glucose (74-99) mg/dL POC Glucose (mg/dL) 62 L 73 L 171 H (75-99) mg/dL Iron (50-170) ug/dL 09/30/20 10/01/20 10/01/20 Range/Units 21:10 02:08 06:18 Sodium (137-145) mmol/L Glucose (74-99) mg/dL POC Glucose (mg/dL) 320 H 185 H 216 H (75-99) mg/dL Iron (50-170) ug/dL 10/01/20 Range/Units 07:04 Sodium 130 L (137-145) mmol/L Glucose 198 H (74-99) mg/dL POC Glucose (mg/dL) (75-99) mg/dL Iron (50-170) ug/dL Microbiology - Last 24 Hours (Table) 09/29/20 Unknown Urine Culture - Preliminary Urine,Voided Gram Neg Bacilli
--- NOTE | 2020-10-01 14:32 | P.PN ---
Subjective Progress Note Date: 10/01/20 Upon seeing the patient per the patient's nurse she's doing better. She is accompanied with her daughter was at bedside who stated that the patient has has been the declining mentation and last 6 weeks, repeating herself, having generalized weakness and walking. She stated that the the patient the had mu ltiple urinary tract infection and the last 6 weeks and she received antibiotic. Patient daughter is concerned that the patient has dementia. Objective - Vital Signs Vital signs: Vital Signs Temp 97.4 F L 10/01/20 08:00 Pulse 78 10/01/20 08:00 Resp 18 10/01/20 08:00 BP 161/70 10/01/20 08:00 Pulse Ox 98 10/01/20 08:00 Intake & Output 09/30/20 10/01/20 10/01/20 18:59 06:59 18:59 Intake Total 1260 180 Balance 1260 180 Weight 75.3 kg Intake: Oral 1260 180 Other: Voiding Method Toilet Toilet # Voids 1 3 - Exam GENERAL: The patient is lying in bed and is not in acute distress. NEUROLOGICAL: Higher mental function: The patient is awake, alert, oriented to self, place and time. She is correctly name the 5 [facility]. Able to identify watch and pen correctly. Patient is following simple and complex commands. No a phasia and no neglect. Cranial nerves: The pupils are round, equal and reactive to light and accommo dation. Visual patricia are full to confrontation throughout. Extraocular movement is intact no nystagmus is noted. Facial sensation is normal to touch throughout. The facial strength is normal throughout. Hearing is mildly to moderately decreased bilaterally to hand rub. Tongue is midline and moved [id number] without any difficulty. No dysarthria is noted. Shoulder shrug is normal bilaterally. Motor: Gait is deferred. The strength is hand director staffing are 5-/5 otherwise 5/5 throughout. Normal tone and bulk. Sensation: Sensation is normal to touch throughout. Reflexes (right/left): 2+ throughout uppers while lowers are 1+ Plantars are downgoing bilaterally. - Labs CBC & Chem 7: 10/01/20 05:10/01/20 07:04 Labs: Abnormal Lab Results - Last 24 Hours (Table) 09/30/20 09/30/20 09/30/20 Range/Units 07:00 16:43 16:59 RBC (3.80-5.40) m/uL Hgb (11.4-16.0) gm/dL Hct (34.0-46.0) % Sodium (137-145) mmol/L Glucose (74-99) mg/dL POC Glucose (mg/dL) 61 L 62 L (75-99) mg/dL Iron 35 L (50-170) ug/dL 09/30/20 09/30/20 09/30/20 Range/Units 17:14 18:09 21:10 RBC (3.80-5.40) m/uL Hgb (11.4-16.0) gm/dL Hct (34.0-46.0) % Sodium (137-145) mmol/L Glucose (74-99) mg/dL POC Glucose (mg/dL) 73 L 171 H 320 H (75-99) mg/dL Iron (50-170) ug/dL 10/01/20 10/01/20 10/01/20 Range/Units 02:08 05:27 06:18 RBC 3.06 L (3.80-5.40) m/uL Hgb 8.9 L (11.4-16.0) gm/dL Hct 25.9 L (34.0-46.0) % Sodium (137-145) mmol/L Glucose (74-99) mg/dL POC Glucose (mg/dL) 185 H 216 H (75-99) mg/dL Iron (50-170) ug/dL 10/01/20 10/01/20 Range/Units 07:04 12:05 RBC (3.80-5.40) m/uL Hgb (11.4-16.0) gm/dL Hct (34.0-46.0) % Sodium 130 L (137-145) mmol/L Glucose 198 H (74-99) mg/dL POC Glucose (mg/dL) 234 H (75-99) mg/dL Iron (50-170) ug/dL Microbiology - Last 24 Hours (Table) 09/29/20 Unknown Urine Culture - Preliminary Urine,Voided Gram Neg Bacilli Assessment and Plan Assessment: * Encephalopathy seems multifactorial with toxicmetabolic encephalopathy (electrolyte disturbance (hyponatremia, hypomagnesemia), uncontrolled sugar with episodes of hypoglycemia (61 and 62), acute Kidney insufficiency), septic encephalopathy from acute UTI) ---mentation improved (No stroke or brain metastasis on MRI Brain) * Generalized weakness, lethargy/fatigue, lack of appetite due to above * Vertigo: Seems peripheral * Hyponatremia with sodium on presentation of 128 * Hypomagnesemia with potassium on presentation 1.5 * Normochromic noromocytic anemia * Acute Kidney insufficiency---resolved * Acute urinary tract infection with history of recurrent urinary tract infection * History of bladder cancer * Diabetes mellitus * Coronary artery disease * peripheral vascular disease * X tobacco use Plan: * She had outpatient MRI of the brain without contrast on 09/28/2020 is reported as age-related atrophy and chronic small vessel ischemic change. * MR the brain with and without gadolinium is reported as no restricted diffus ion or abnormal enhancement suggest metastatic disease. I reviewed the MRI of the brain with Dr. Ghosh (Radiologist) and that he felt the patient had chronic small vessel disease. There is no acute or subactue ischemia and no enhancement. * MR the cervical spine with and without is reported as there is motion on exam. Degenerative disc disease, facet arthropathy, former neural encroachment. No significant spinal stenosis. No abnormal enhancement to suggest metastatic disease is evident * Folate level serum is 10.0 which is normal * TSH is 2.290 which is normal. * Orthostatic supine is 160/51 with a heart rate of 76, sitting is 146/58 with a heart rate of 80 and standing is 156/64 with a heart rate of 82. Orthostatics are negative. * CT chest abdomen and pelvis: Is reported as COPD with mild emphysema. A few pulmonary nodules measuring up to 5 mm. 6 month follow-up CT chest recommended to reassess. Some borderline sized MET side node measuring up to 1.0 cm and can also be reassessed at that time. Some mild focal thickening along the anterior midline base of the bladder up to 1 cm may be partial volume averaging artifact. Given that concern for a period neoplastic syndrome, correlate with urinalysis and urine cytology to exclude a urothelial lesion. Please defer to actual report for further details. * Routine EEG is pending. I will not start the patient on an antiepileptic drug unless there is a platform discharges or seizure on the EEG. * Vitamin B12 is 328 which is low normal. The patient is on vitamin B12 500 mg daily. I increased the vitamin B12 1000 g daily. * Physical therapy and occupation therapy are consulted * Possibly the patient has underlying cognitive impairment (per patient daughter mentation off in past 6 weeks, has been repeating herself)---but needs further evaluation as outpatient after UTI clears up. Recommend neuropsych evaluation as outpatient. Possibly consider paraneoplastic workup as an outpatient. Patient daughter was notified that the patient needs to follow-up with a neurologist as an outpatient (within 1-2 weeks) * We'll defer the electrolytes imbalance correction to nephrology and the primary team. * Please avoid any hypoglycemic episode and we'll defer the measured the primary team. * Nephrology, gastroenterology and urology are consulted. * Will defer the rest of medical management to specialist above that are consulted and to primary team. * Recommend the patient to follow-up with oncologist as outpatient * The plan was discussed with the patient nurse and the patient's daughter (Yanet) UPDATE: Routine EEG (Preliminary read): Normal. There are no focal slowing, epileptiform discharges or seizure on the EEG. Ap Gonzales M.D. Neuro-hospitalist Time with Patient: Less than 30
--- NOTE | 2020-10-01 14:36 | P.DS ---
<JigneshmichaelCori A - Last Filed: 10/01/20 14:37> Providers Expected date of discharge: 10/02/20 Hospital Course: HISTORY OF PRESENT ILLNESS 85-year-old female in my office patient who has multiple medical problem known to have history of bladder cancer, atherosclerotic heart disease, history of diabetes, history of CVA, recurrent UTI, chronic smoking and peripheral vascular disease who was hospitalized recently at [facility] for TIA and found to have recurrent UTI with encephalopathy. Patient was treated in full seen back in the office continue to have significant symptom with abnormal balance gait along with severe vestibulopathy and dizziness. Found to have another UTI which was treated as well and patient was referred for outpatient MRI showed significant small vessel disease with multiple spot of abdomen radiation consistent with most likely TIA and small vessel disease no sign of large CVA was found. And no sign of any questionable of metastasis at the time. Patient has been declining very aggressively not been able to ambulate, walk, take care of herself, not been able to walk to the bathroom shower or fix her meals. Family found her change drastically in the last 3 weeks ended up coming to the emergency department at [facility] where was seen and evaluated found to have acute kidney injury with significant hyponatremia along with mild hypomagnesemia and mild anemia with no sign of active bleed at the time, her uri ne test came back positive for the third time despite an aggressive treatment and with her history of bladder cancer that make the suspicion of malignancy in the bladder is much higher, also patient has multiple sign and symptom consistent with paraneoplastic syndrome specially with her chronic history of smoking. Chest x-ray came back negative, with her kidney function decided to delay going for CAT scan of the abdomen pelvis and the chest still patient is well-hydrated and patient will be admitted for recurrent UTI with possible neoplasm in the bladder also workup for neoplasm in the lung or in the soft tissue in the abdominal and pelvis area to be done still watch for any gastrointestinal bleed. Her blood sugar has been significantly elevated despite using her insulin which will be adjusted at this point. 09/30: Patient states that she feels about the same from yesterday. She was noted have a drop in her hemoglobin and consult with GI was added, stool for occult study. We've also added a consult for urology as patient has history of bladder cancer and has had multiple frequent urinary tract infections recently. She was seen by Dr. Sinclair in the past who has retired. There is also consult in place for neurology for occipital neuralgia possible trigeminal neuralgia. Nephrology to follow for hyponatremia and acute kidney injury. Patient has been afebrile, heart rate 77, blood pressure 140/63, pulse ox 94% on room air. Repeat blood work reveals WBC 5.5, hemoglobin 8.8, platelet count 274. Sodium 132, potassium 4.1, chloride 102, CO2 23, BUN 24 creatinine 1.01. Blood sugars are running between 132 and 225. Magnesium 1.3, total bilirubin 0.1, AST 18, ALT 16, alkaline phosphatase 61. Urine culture is in progress. 10/01: Patient has been seen by neurology and ordered MRI of the brain and cervical spine, EEG. Encephalopathy thought to be multi-factorial with toxic metabolic encephalopathy and septic encephalopathy, rule out brain metastases/paraneoplastic syndrome. MRI of the brain revealed degenerative disc disease, facet arthropathy, foraminal encroachment. No significant spinal stenosis. No abnormal enhancement to suggest metastatic disease. Patient is seen by Dr. Valdes for acute kidney injury secondary to poor renal intake and lisinopril/hydrochlorothiazide. IV fluids hep-locked, increase oral intake, 1200 mL fluid restriction, hold lisinopril. Avoid thiazide diuretics in the future. Patient has been seen by Dr. Ag for patient with history of bladder cancer, he will review patient's records. Patient will probably need cystoscopy which can be done as an outpatient and will need to be on antibiotics for UTI. CAT scan of the chest abdomen and pelvis revealed COPD with mild emphysema. Pupil [place] nodules measuring up to 5 mm. Some borderline mediastinal nodes measuring up to 1 cm. Bilateral pelviectasis of uncertain etiology. Extrarenal pelvises are possible. Short interval follow-up with ultrasound recommended. Some mild focal thickening along the anterior midline base of the bladder up to 1.1 cm maybe partial volume averaging artifact. Correlate for urinalysis and ur ine cytology. Moderate atherosclerotic calcifications throughout the abdominal aorta and iliac arteries suggestive of moderate to severe segmental stenosis in the bilateral common iliac arteries. Sigmoid diverticulosis without diverticulitis. Small hiatal hernia. Nonobstructive renal calculi measuring up to 5 mm. No signs of malignancy were found. EEG and echocardiogram are scheduled for today. Patient's daughter Yanet was contacted over the phone and discussed discharge planning. Family do not live with the patient and they are currently staying with her due to increased weakness and debility. 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 We will be planning for tomorrow. Patient has been seen by GI with recommendations to continue to monitor for GI bleed, no plans for endoscopy, continue iron. ASSESSMENT AND PLAN 1. Metabolic encephalopathy affected by UTI, TIA, hyponatremia, anemia, acute kidney injury. 2. TIA and CVA ruled out. 3. Hypovolemic hyponatremia secondary to poor oral intake and thiazide diuretics. 4. Anemia and possible GI bleed. 5. Recurrent UTI. 6. Acute kidney injury: With stage II chronic kidney disease. 7. Atherosclerotic heart disease. 8. Type 2 diabetes on insulin, A1c 8.5 9. Memory loss: Most likely from small vessel disease, possible vascular dem entia. 10. Hyperlipidemia. 11. Hypertension. 12. Possible paraNeoplastic syndrome has been ruled out by CAT scan. DISCHARGE PLAN [place] on Monday. Impression and plan of care have been directed as dictated by the signing physician. Cori Austin nurse practitioner acting as scribe for signing physician. Patient Condition at Discharge: Good Plan - Discharge Summary Discharge Rx Participant: No New Discharge Prescriptions: New hydrALAZINE HCL [Apresoline] 75 mg PO TID tab ALPRAZolam [Xanax] 0.25 mg PO HS PRN #3 tab PRN Reason: insomnia Insulin NPH [humuLIN N] 24 unit SQ DAILY vial Ertapenem [INVanz] 1 gm IVPB Q24H #14 vial INSULIN ASPART (NovoLOG) [NovoLOG (formulary)] 0 unit SQ ACHS vial rOPINIRole HCL [Requip] 0.5 mg PO BID #0 tab Continue hydrALAZINE HCL [Apresoline] 50 mg PO TID Cyanocobalamin [Vitamin B-12] 500 mcg PO DAILY Scopolamine 1.5MG/72Hr Patch [TransDerm Scop] 1 patch TRANSDERM Q72H Pantoprazole Sodium [Protonix] 40 mg PO BID Meclizine [Antivert] 12.5 mg PO TID Ferrous Sulfate [Iron (65 MG Elemental)] 325 mg PO DAILY Atorvastatin [Lipitor] 40 mg PO HS Aspirin EC [Ecotrin Low Dose] 81 mg PO DAILY Changed Insulin NPH Human Isophane [NovoLIN N] 24 units SQ DAILY #0 Discontinued Lisinopril-Hctz 10-12.5 mg [Zestoretic 10-12.5] 1 tab PO DAILY Cefuroxime [Ceftin] 250 mg PO Q12H Discharge Medication List Aspirin EC [Ecotrin Low Dose] 81 mg PO DAILY 09/29/20 [History] Atorvastatin [Lipitor] 40 mg PO HS 09/29/20 [History] Cyanocobalamin [Vitamin B-12] 500 mcg PO DAILY 09/29/20 [History] Ferrous Sulfate [Iron (65 MG Elemental)] 325 mg PO DAILY 09/29/20 [History] Meclizine [Antivert] 12.5 mg PO TID 09/29/20 [History] Pantoprazole Sodium [Protonix] 40 mg PO BID 09/29/20 [History] Scopolamine 1.5MG/72Hr Patch [TransDerm Scop] 1 patch TRANSDERM Q72H 09/29/20 [History] hydrALAZINE HCL [Apresoline] 50 mg PO TID 09/29/20 [History] ALPRAZolam [Xanax] 0.25 mg PO HS PRN #3 tab 10/01/20 [Rx] INSULIN ASPART (NovoLOG) [NovoLOG (formulary)] 0 unit SQ ACHS vial 10/01/20 [Rx] Insulin NPH Human Isophane [NovoLIN N] 24 units SQ DAILY #0 10/01/20 [Rx] Insulin NPH [humuLIN N] 24 unit SQ DAILY vial 10/01/20 [Rx] hydrALAZINE HCL [Apresoline] 75 mg PO TID tab 10/01/20 [Rx] rOPINIRole HCL [Requip] 0.5 mg PO BID #0 tab 10/01/20 [Rx] Ertapenem [INVanz] 1 gm IVPB Q24H #14 vial 10/02/20 [Rx] Follow up Appointment(s)/Referral(s): Johnny Flynn MD [Primary Care Provider] - 1 Week (At [facility]) Jerel Valdes DO [STAFF PHYSICIAN] - 1 Week Niko Ag MD [STAFF PHYSICIAN] - 2 Weeks Discharge Disposition: TRANSFER TO SNF/ECF <Johnny Flynn - Last Filed: 10/02/20 14:25> Providers Date of admission: 09/29/20 16:30 Attending physician: Johnny Flynn Consults: 09/29/20 16:30 Consult Physician Urgent Consulting Provider: Jerel Valdes Consult Reason/Comments: hyponatremia Do you want consulting provider notified?: Yes 09/29/20 21:03 Consult Physician Routine Consulting Provider: Ap Gonzales Consult Reason/Comments: CVA and Encephalopathy, Possible SZ Do you want consulting provider notified?: Yes 09/30/20 08:28 Consult Physician Routine Consulting Provider: Denia Payton Consult Reason/Comments: GIB Do you want consulting provider notified?: Yes Consult Physician Urgent Consulting Provider: Niko Ag Consult Reason/Comments: Hx bladder cancer, freq UTI Do you want consulting provider notified?: Yes 10/02/20 11:51 Consult Physician Routine Consulting Provider: Scottie Gaspar Consult Reason/Comments: ESBL, will be on Ertapanem for 2 weeks. Do you want consulting provider notified?: Yes Primary care physician: Johnny Flynn [facility] Course: will change Antibiotics to Ertapenem 1G daily for 14 days Pt had ESBL on urine culture.
--- NOTE | 2020-10-01 16:00 | ECHOF ---
Referral Reason:fatigue MEASUREMENTS -------- HEIGHT: 170.2 cm WEIGHT: 75.3 kg BP: 139/67 IVSd: 1.0 cm (0.6 - 1.1) LVIDd: 4.4 cm (3.9 - 5.3) LVPWd: 1.2 cm (0.6 - 1.1) EDV(Teich): 89 ml IVSs: 1.4 cm LVIDs: 2.9 cm LVPWs: 1.2 cm %IVS Thck: 41 % ESV(Teich): 32 ml EF(Teich): 64 % %FS: 34 % SV(Teich): 57 ml LA Diam: 3.5 cm (2.7 - 3.8) RVIDd: 2.2 cm (< 3.3) LALs A4C: 4.9 cm LAAs A4C: 16.1 cm LAESV A-L A4C: 45 ml LAESV MOD A4C: 43 ml LALs A2C: 5.8 cm LAAs A2C: 23.5 cm LAESV A-L A2C: 81 ml LAESV MOD A2C: 78 ml LAESV(A-L): 66 ml LAESV Index (A-L): 35.12 ml/m Ao Diam: 3.0 cm (2.0 - 3.7) EPSS: 0.5 cm MV E Fredi: 0.62 m/s MV DecT: 244 ms MV Dec [place]: 2.6 m/s MV A Fredi: 0.79 m/s MV E/A Ratio: 0.79 MV PHT: 71 ms AV Vmax: 1.74 m/s AV maxP.16 mmHg TR Vmax: 2.77 m/s TR maxP.70 mmHg RAP: 5.00 mmHg RVSP: 35.70 mmHg MV EF SLOPE: 46.42 mm/s (70 - 150) MV EXCURSION: 18.39 mm (> 18.000) FINDINGS -------- Sinus rhythm. This was a technically good study. LV size, wall thickness and systolic function are normal, with an EF greater than 55%. The left jeanine tricular size is normal. The right ventricle is normal in size. LA is moderately dilated 34-39 ml/m2 The right atrial size is normal. There is mild aortic valve sclerosis. Moderate mitral regurgitation is present. Mild tricuspid regurgitation present. There is mild pulmonary hypertension. The right ventricular systolic pressure, as measured by Doppler, is 35.70mmHg. Trace/mild (physiologic) pulmonic regurgitation. The aortic root size is normal. There is no pericardial effusion. CONCLUSIONS -------- 1. LV size, wall thickness and systolic function are normal, with an EF greater than 55%. 2. The left ventricular size is normal. 3. The right ventricle is normal in size. 4. LA is moderately dilated 34-39 ml/m2 5. The right atrial size is normal. 6. There is mild aortic valve sclerosis. 7. Moderate mitral regurgitation is present. 8. Mild tricuspid regurgitation present. 9. There is mild pulmonary hypertension. 10. The right ventricular systolic pressure, as measured by Doppler, is 35.70mmHg. 11. Trace/mild (physiologic) pulmonic regurgitation. 12. The aortic root size is normal. 13. There is no pericardial effusion. MACHINE MADE SHOE UNIT WORKER: Darling Lorenzo RDCS
--- NOTE | 2020-10-01 16:11 | EEG ---
ELECTROENCEPHALOGRAM REPORT DATE OF SERVICE: 10/01/2020. CLINICAL HISTORY: This is an 85-year-old woman with altered mental status. The video EEG is obtained to evaluate for seizure and epileptiform activity. RELEVANT MEDICATION: The patient is not on any antiepileptic drugs. EEG TYPE: A routine 21 channel EEG is performed with video using the 10/20 electrode placement system. DESCRIPTION: Wakefulness and drowsiness are obtained. During wakefulness, there is a posterior dominant rhythm of low to moderate voltage, somewhat poorly modulated and poorly sustained of 9 hertz activity. There is no physiological stage 2 sleep architecture seen. There is no focal slowing. There is mild to moderate diffuse myogenic artifact. Interictal and ictal is none. ACTIVATION PROCEDURE: Photic stimulation did evoke a posterior driving response at 10 hertz activity. There is no abnormality during the photic stimulation. Hyperventilation is not performed. CLINICAL INTERPRETATION: This is a normal routine EEG. There are no focal slowing, epileptiform discharges or seizure on the EEG. Clinical correlation is recommended. AASHISH / DANIELEN: [id number] / [facility]ARE SYSTEMJosse
[2020-10-01] MEDS: hydrALAZINE HCL 25 MG TAB PO SCH ×2 (16:47→20:34)
[2020-10-01 17:09] LABS: Glucose,Whole Blood 211 mg/dL (75-99)
[2020-10-01 20:20] LABS: Glucose,Whole Blood 165 mg/dL (75-99)
[2020-10-01] MEDS: ATORVASTATIN 40 MG TAB PO SCH (20:34)
[2020-10-01] MEDS: ALPRAZolam 0.25 MG TAB PO PRN (20:34)
[2020-10-02 02:39] LABS: Glucose,Whole Blood 206 mg/dL (75-99)
[2020-10-02 06:20] LABS: Glucose,Whole Blood 218 mg/dL (75-99)
[2020-10-02] MEDS: INSULIN ASPART (NovoLOG) 100 UNIT/ML VIAL SQ SCH ×2 (06:37→12:47)
[2020-10-02 07:55] LABS: HCT 27.7 % (34.0-46.0); HGB 9.3 gm/dL (11.4-16.0); MCH 28.2 pg (25.0-35.0); MCHC 33.6 g/dL (31.0-37.0); MCV 84.1 fL (80.0-100.0); Mean Platelet Volume 7.4; Platelet Count 329 k/uL (150-450); RBC 3.29 m/uL (3.80-5.40); RDW 12.6 % (11.5-15.5); WBC 8.4 k/uL (3.8-10.6)
[2020-10-02 07:59] LABS: Calcium 9.5 mg/dL (8.4-10.2); Magnesium 1.4 mg/dL (1.6-2.3)
--- NOTE | 2020-10-02 08:35 | P.PN ---
Subjective Progress Note Date: 10/02/20 The patient is growing a klebsiella in her urine. After she is treated she will need cystoscopy. Her history of bladder cancer treated by Dr Sinclair was reviewed in the office. The patient had declined f/u however the tumor was non invasive making it less likely to be a cause of her recurring utis. Objective - Vital Signs Vital signs: Vital Signs Temp 97.5 F L 10/01/20 20:00 Pulse 80 10/02/20 04:00 Resp 20 10/02/20 04:00 BP 163/69 10/02/20 04:00 Pulse Ox 95 10/02/20 04:00 Intake & Output 10/01/20 10/02/20 10/02/20 18:59 06:59 18:59 Intake Total 180 120 Balance 180 120 Weight 74.8 kg Intake: Oral 180 120 Other: Voiding Method Toilet # Voids 2 2 # Bowel Movements 1 - Labs CBC & Chem 7: 10/02/20 07:06 10/02/20 07:06 Labs: Abnormal Lab Results - Last 24 Hours (Table) 10/01/20 10/01/20 10/01/20 Range/Units 05:27 12:05 16:57 RBC 3.06 L (3.80-5.40) m/uL Hgb 8.9 L (11.4-16.0) gm/dL Hct 25.9 L (34.0-46.0) % Sodium (137-145) mmol/L Chloride (98-107) mmol/L Glucose (74-99) mg/dL POC Glucose (mg/dL) 234 H 211 H (75-99) mg/dL Magnesium (1.6-2.3) mg/dL 10/01/20 10/02/20 10/02/20 Range/Units 20:19 02:37 06:19 RBC (3.80-5.40) m/uL Hgb (11.4-16.0) gm/dL Hct (34.0-46.0) % Sodium (137-145) mmol/L Chloride (98-107) mmol/L Glucose (74-99) mg/dL POC Glucose (mg/dL) 165 H 206 H 218 H (75-99) mg/dL Magnesium (1.6-2.3) mg/dL 10/02/20 10/02/20 Range/Units 07:06 07:06 RBC 3.29 L (3.80-5.40) m/uL Hgb 9.3 L (11.4-16.0) gm/dL Hct 27.7 L (34.0-46.0) % Sodium 131 L (137-145) mmol/L Chloride 96 L (98-107) mmol/L Glucose 198 H (74-99) mg/dL POC Glucose (mg/dL) (75-99) mg/dL Magnesium 1.4 L (1.6-2.3) mg/dL Microbiology - Last 24 Hours (Table) 09/29/20 Unknown Urine Culture - Final Urine,Voided Klebsiella pneumoniae
[2020-10-02] MEDS ORDERED: INSULIN NPH 300 UNIT/3 ML VIAL SQ SCH (09:00)
[2020-10-02] MEDS ORDERED: CYANOCOBALAMIN 500 MCG TAB PO SCH (09:00)
[2020-10-02] MEDS ORDERED: polyethylene glycoL 3350 17 GM POWD.PACK PO SCH (09:00)
[2020-10-02] MEDS: hydrALAZINE HCL 25 MG TAB PO SCH (09:10)
[2020-10-02] MEDS: PANTOPRAZOLE 40 MG TABLET PO SCH (09:10)
[2020-10-02] MEDS: ASPIRIN 81 MG PO SCH (09:11)
[2020-10-02] MEDS: MECLIZINE 12.5 MG TAB PO SCH ×2 (09:11→15:40)
[2020-10-02] MEDS: FERROUS SULFATE 325 MG TAB PO SCH (09:11)
--- NOTE | 2020-10-02 10:04 | P.PN ---
Subjective Patient is seen in follow-up for acute kidney injury and hyponatremia. GFR back to baseline. Sodium level 131 today. Oral intake is poor. No vomiting or diarrhea. Off IV fluids. Vital signs are stable. General: The patient appeared well nourished and normally developed. HEENT: Head exam is unremarkable. Neck is without jugular venous distension. LUNGS: Breath sounds decreased. HEART: Rate and Rhythm are regular. ABDOMEN: Soft, no distention. EXTREMITITES: No edema. Objective - Vital Signs Vital signs: Vital Signs Temp 97.5 F L 10/02/20 09:02 Pulse 73 10/02/20 09:02 Resp 20 10/02/20 09:02 BP 161/69 10/02/20 09:02 Pulse Ox 96 10/02/20 09:02 Intake & Output 10/01/20 10/02/20 10/02/20 18:59 06:59 18:59 Intake Total 180 120 240 Balance 180 120 240 Weight 74.8 kg Intake: Oral 180 120 240 Other: Voiding Method Toilet # Voids 2 2 # Bowel Movements 1 - Labs CBC & Chem 7: 10/02/20 07:06 10/02/20 07:06 Labs: Abnormal Lab Results - Last 24 Hours (Table) 10/01/20 10/01/20 10/01/20 Range/Units 05:27 12:05 16:57 RBC 3.06 L (3.80-5.40) m/uL Hgb 8.9 L (11.4-16.0) gm/dL Hct 25.9 L (34.0-46.0) % Sodium (137-145) mmol/L Chloride (98-107) mmol/L Glucose (74-99) mg/dL POC Glucose (mg/dL) 234 H 211 H (75-99) mg/dL Magnesium (1.6-2.3) mg/dL 10/01/20 10/02/20 10/02/20 Range/Units 20:19 02:37 06:19 RBC (3.80-5.40) m/uL Hgb (11.4-16.0) gm/dL Hct (34.0-46.0) % Sodium (137-145) mmol/L Chloride (98-107) mmol/L Glucose (74-99) mg/dL POC Glucose (mg/dL) 165 H 206 H 218 H (75-99) mg/dL Magnesium (1.6-2.3) mg/dL 10/02/20 10/02/20 Range/Units 07:06 07:06 RBC 3.29 L (3.80-5.40) m/uL Hgb 9.3 L (11.4-16.0) gm/dL Hct 27.7 L (34.0-46.0) % Sodium 131 L (137-145) mmol/L Chloride 96 L (98-107) mmol/L Glucose 198 H (74-99) mg/dL POC Glucose (mg/dL) (75-99) mg/dL Magnesium 1.4 L (1.6-2.3) mg/dL Microbiology - Last 24 Hours (Table) 09/29/20 Unknown Urine Culture - Final Urine,Voided Klebsiella pneumoniae Assessment and Plan Plan: Assessment: 1. Acute kidney injury mostly prerenal from poor intake and lisinopril/Hydrochlorothiazide. Improved with IV hydration. Creatinine 0.83 today. 2. Hypovolemic hyponatremia for poor intake and further worsened with the use of thiazide diuretic. Also component of hypertonicity from hyperglycemia. Urine sodium 51 and urine osmolality 321. TSH normal. Sodium level 131 today. 3. Benign hypertension. 4. Diabetes mellitus. 5. Hypomagnesemia from poor intake. 6. UTI. Urine culture positive for Klebsiella maintained on antibiotics. Plan: Remains off IV fluids. Encourage oral intake, particularly protein. Hold off on salt tabs as blood pressure is high. Add ensure tid. 1200 mL fluid restriction. Hold lisinopril for now. Avoid thiazide diuretics in the future. Replace magnesium. Increase dose of hydralazine.
[2020-10-02] MEDS: MAGNESIUM SULFATE-D5W PMX 1 GM in DEXTROSE/WATER 1 100ML.BAG IVPB SCH ×2 (11:40→13:20)
[2020-10-02 11:46] VITALS: RESP 18; TEMP 97.6
[2020-10-02 11:59] LABS: Glucose,Whole Blood 263 mg/dL (75-99)
[2020-10-02] MEDS ORDERED: ERTAPENEM 1 GM in SODIUM CHLORIDE 0.9% 50 ML IVPB SCH (13:00)
--- NOTE | 2020-10-02 15:28 | PN ---
PROGRESS NOTE DATE OF SERVICE: October 02, 2020 Patient is an 85-year-old pleasant white female seen in consultation yesterday for anemia, progressive weakness, decreased appetite and some nausea and dizziness. She has been taking iron supplements and has been having dark colored stools. She, however, denies any abdominal pain. No rectal bleeding or melena. PHYSICAL EXAMINATION: She appears comfortable. No apparent distress. VITAL SIGNS: Stable. Blood pressure is 166/76, pulse rate 70, temperature 97.6. HEENT examination: Unremarkable. Conjunctive pink. Sclerae anicteric. Oral cavity no lesions. NECK no JVD or lymph node enlargement. CHEST was clear to auscultation. HEART: Regular rate and rhythm. ABDOMEN: Soft. Bowel sounds are positive. No organomegaly. EXTREMITIES: No pedal edema. NEURO: She is alert and oriented x3. No focal deficits. LABS: WBC 8.5, hemoglobin 9.3, platelets 329. BUN and creatinine 13 and 0.77 respectively. Iron indices: Serum iron was 35, TIBC 267, iron saturation 13% and ferritin was 29. IMPRESSION: 1. Normocytic normochromic anemia and iron indices consistent with iron deficiency anemia. The patient clinically has no active bleeding. Rule out occult GI blood loss. She has been on iron supplements for the last few days and has been having dark colored stools. 2. Urinary tract infection on broad-spectrum antibiotics. 3. History of hypertension and hyperlipidemia. 4. Hyponatremia gradually improving. Sodium is 131 today. RECOMMENDATION: Discussed with the patient about endoscopic intervention. At this time she refuses. I suggested for her to think about it and she can always follow up in the office on outpatient basis to discuss this further. In the meantime, continue on iron supplements. We will sign off at this time. Thank you for this consultation. MMODL / IJN: [id number] /
[2020-10-02] MEDS ORDERED: hydrALAZINE HCL 50 MG TAB PO SCH (16:00)
[2020-10-02 16:30] LABS: Appearance,Urine Cloudy (Clear); Bacteria,Urine Many /hpf; Bilirubin,Urine Negative (Negative); Blood,Urine Negative (Negative); Color,Urine Yellow; Glucose,Urine (UA) 2+ (Negative); Ketones,Urine Trace (Negative); Leukocyte Esterase,Urine Large (Negative); Mucus,Urine Many /hpf; Nitrite,Urine Positive (Negative); PH, Urine 5.5 (5.0-8.0); Protein,Urine Trace (Negative); RBC,Urine 1 /hpf (0-5); Specific Gravity,Urine 1.011 (1.001-1.035); Urobilinogen,Urine <2.0 mg/dL (<2.0); WBC,Urine 22 /hpf (0-5)
[2020-10-02 16:43] LABS: Glucose,Whole Blood 166 mg/dL (75-99)
[2020-10-02 16:57] VITALS: BP 151/71; PULSE 71
--- NOTE | 2020-10-02 17:17 | CONS ---
CONSULTATION DATE OF SERVICE: 10/02/2020 REASON FOR CONSULTATION: ESBL Klebsiella positive urine culture. HISTORY OF PRESENT ILLNESS: The patient is an 85-year-old female who presented to [facility] on the 09/29/2020 for evaluation of increasing weakness and decrease in functional status. The patient been getting worse for a week or two before presentation to hospital. The patient was unable to get up and down stairs at home. No clear history of any fever or any chills. The patient denies having any headache. No chest pain. No shortness of breath or cough. Did have some nausea and decreased oral intake but no vomiting. No abdominal pain. No diarrhea. Denies any burning or frequency of urine. No flank pain or suprapubic pain. The patient did not have any fever during this admission. Patient did have a normal white count. The patient had a positive UA on admission with large leukocyte esterase, more than 182 WBCs with those cultures subsequently finalized with ESBL Klebsiella. Patient's antibiotic was switched over to Invanz. Admitting physician placed a midline and wrote for 2 weeks of IV Invanz. The patient is scheduled to go to [facility] for rehabilitation and IV antibiotic therapy. Last-minute ID consult was placed for management of this UTI. The patient does have a history of bladder cancer, previously evaluated by [facility]. Apparently did have resection of the bladder tumor. The patient did have a CT of the chest, abdomen and pelvis completed on September 30 which shows some focal thickening along the anterior midline base of the bladder, 1.1 cm. Sigmoid diverticulosis without diverticulitis. REVIEW OF SYSTEMS: Positive points have been mentioned in the HPI. Rest of the systems are negative. PAST MEDICAL HISTORY: Bladder cancer, COPD, diabetes mellitus, hypertension. PAST SURGICAL HISTORY: Cystoscopy and resection of bladder tumor. SOCIAL HISTORY: Remote history of smoking. Occasionally drinks. Does have a history of marijuana use. ALLERGIES: TETRACYCLINE. FAMILY HISTORY: No pertinent findings noticed. MEDICATIONS: The patient is currently on Xanax, aspirin, Lipitor, vitamin B12, ertapenem, iron sulfate, hydralazine, NovoLog, Antivert, Narcan, Protonix, Requip. PHYSICAL EXAMINATION: Her blood pressure is 181/77, pulse of 73, temperature 97.6. She is 97% on room air. General description is an elderly female up in bed in no distress. No tachypnea or accessory muscle of respiration use. HEENT: Examination shows slight pallor. No scleral icterus. Oral mucous membrane is dry. NECK: Trachea is central. No thyromegaly. LUNGS: Unlabored breathing. Clear to auscultation anteriorly. No wheeze or crackle. HEART: S1, S2. Regular rate and rhythm. ABDOMEN: Soft. No tenderness. No guarding or rigidity. EXTREMITIES: No edema of the feet. SKIN EXAMINATION: No rash or mass palpable. Neurologically the patient is awake, alert, oriented x3. Mood and affect normal. LABS: Hemoglobin 9.3, white count 8.4, BUN of 13, creatinine 0.77. Urine was positive. CT report mentioned above. DIAGNOSTIC IMPRESSION AND PLAN: Patient with a positive urine culture with extended-spectrum beta-lactamase with a question of possible colonization, as the patient currently does not have any urinary symptoms. The patient did not have any fever or elevated white count. She did have a history of bladder cancer, though. Will need further management in the outpatient setting. With the patient getting a midline already, antibiotic has been arranged for the patient. PLAN: May repeat another UA and cultures and if it has cleared up, we can disregard the positive urine culture as a contaminant. However, if the repeat UA comes back positive and she did have positive cultures with history of bladder cancer and antibiotic already arranged, may benefit from a short course of antibiotic. Thank you for this consultation. Will follow this patient along with you. MMODL / IJN: [id number] /
--- NOTE | 2020-10-28 07:35 | CDI ---
Documentation Clarification Form Date: 10/28/20 From: Maureen Turpin Admit Date: 09/29/2020 04:30:00 PM Patient Name: Tayla Ascencio Visit Number: [id number] Discharge Date: 10/02/2020 04:55:00 PM ATTENTION: The Clinical Documentation Specialists (CDI) and [facility] Coding Staff appreciate your assistance in clarifying documentation. Please respond to the clarification below the line at the bottom and electronically sign. The CDI & [facility] Coding staff will review the response and follow-up if needed. Please note: Queries are made part of the Legal Health Record. If you have any questions, please contact the author of this message via ITS. Dr. Johnny Flynn, Septic encephalopathy is documented in Dr Gonzales's consult, your PN on 10/01, Dr Gonzales's PN on 10/01 and your discharge summary, but is not noted in subsequent documentation. Clarification is requested. History/Risk Factors: UTI positive for Klebsiella, encephalopathy seems multifactorial with toxic metabolic encephalopathy (elective disturbance (hyponatremia, hypomagnesemia), uncontrolled sugar, acute kidney insufficiency), septic encephalopathy from acute UTI. Clinical Indicators: WBC-5.9, Neutrophils-4.3, Lactic acid-0.7, T-98, P-73, R- 18, BP-153.68 Treatment: IV fluids, IV Rocephin, IV Invanz Please clarify if the sepsis is: [xx ] Klebsiella sepsis w septic shock confirmed, remains under treatment [ ] Klebsiella sepsis was ruled out [ ] Other condition, please specify [ ] Unable to determine MTDD
== END 2020-10-02 16:55 | DRG 871 ==
LOC: EC 14:35 → 3SCARD 16:30
PROVIDERS: ADMIT Internal Medicine Geriatric Medicine; ATTEND Internal Medicine Geriatric Medicine
PROC: 05HF33Z Insertion of Infusion Device into Left Cephalic Vein, Percutaneous Approach (ICD-10-PCS; principal; 2020-10-02 20:00)
DX: A41.4 Sepsis due to anaerobes (principal); G93.41 Metabolic encephalopathy; N39.0 Urinary tract infection, site not specified; E22.2 Syndrome of inappropriate secretion of antidiuretic hormone; N17.9 Acute kidney failure, unspecified; I67.89 Other cerebrovascular disease; Z16.12 Extended spectrum beta lactamase (ESBL) resistance; R65.20 Severe sepsis without septic shock; E11.649 Type 2 diabetes mellitus with hypoglycemia without coma; E11.22 Type 2 diabetes mellitus with diabetic chronic kidney disease; D50.9 Iron deficiency anemia, unspecified; E11.51 Type 2 diabetes mellitus with diabetic peripheral angiopathy without gangrene; E11.65 Type 2 diabetes mellitus with hyperglycemia; J43.9 Emphysema, unspecified; Z79.4 Long term (current) use of insulin; Z20.822 Contact with and (suspected) exposure to COVID-19; F01.50 Vascular dementia, unspecified severity, without behavioral disturbance, psychotic disturbance, mood disturbance, and anxiety; I12.9 Hypertensive chronic kidney disease with stage 1 through stage 4 chronic kidney disease, or unspecified chronic kidney disease; N18.2 Chronic kidney disease, stage 2 (mild); E86.0 Dehydration; E86.1 Hypovolemia; E83.42 Hypomagnesemia; K57.30 Diverticulosis of large intestine without perforation or abscess without bleeding; K44.9 Diaphragmatic hernia without obstruction or gangrene; N20.0 Calculus of kidney; E78.5 Hyperlipidemia, unspecified; K59.00 Constipation, unspecified; M47.9 Spondylosis, unspecified; N28.89 Other specified disorders of kidney and ureter; R26.2 Difficulty in walking, not elsewhere classified; I25.10 Atherosclerotic heart disease of native coronary artery without angina pectoris; T46.4X5A Adverse effect of angiotensin-converting-enzyme inhibitors, initial encounter; T50.2X5A Adverse effect of carbonic-anhydrase inhibitors, benzothiadiazides and other diuretics, initial encounter; Z79.82 Long term (current) use of aspirin; Z79.899 Other long term (current) drug therapy; Z87.440 Personal history of urinary (tract) infections; Z85.51 Personal history of malignant neoplasm of bladder; Z87.891 Personal history of nicotine dependence; Z86.73 Personal history of transient ischemic attack (TIA), and cerebral infarction without residual deficits; Z87.2 Personal history of diseases of the skin and subcutaneous tissue; Z87.448 Personal history of other diseases of urinary system; Z90.6 Acquired absence of other parts of urinary tract; Z98.890 Other specified postprocedural states; Z88.1 Allergy status to other antibiotic agents; Z82.49 Family history of ischemic heart disease and other diseases of the circulatory system; Z81.8 Family history of other mental and behavioral disorders; Z80.9 Family history of malignant neoplasm, unspecified; Z82.3 Family history of stroke
CPT/HCPCS: 36410; 36415; 70553; 71046; 71260; 72156; 74177; 76937; 80048; 80053; 81001; 82310; 82570; 82607; 82728; 82746; 83540; 83550; 83605; 83735; 83935; 84133; 84300; 84443; 84484; 85025; 85027; 85045; 87077; 87086; 87186; 87635; 93005; 93306; 95816; 96360; 99285